=== PATIENT | male | born 1970 | race Caucasian/White ===

== ENCOUNTER 2021-08-02 09:05 | Emergency (ER) | payer OTHER ==
[2021-08-02] MEDS ORDERED: MORPHINE 2 MG/ML CARPUJECT IVP STA (09:14)
[2021-08-02] MEDS ORDERED: METOPROLOL 5 MG/5 ML VIAL IVP STA (09:14)
[2021-08-02] MEDS ORDERED: NITROGLYCERIN SL 0.4 MG TABLET SL STA (09:14)
--- NOTE | 2021-08-02 09:14 | ED Physician Documentation ---
PD HPI CHEST PAIN - Stated complaint Stated Complaint: HEART PX - History obtained from History obtained from: Patient - History of Present Illness Timing - onset: How many hours ago (1) Timing - onset during: Light activity (he was just getting into the shower and had onset of left chest to scapular area pain/tightness, like a knot. Associated with sweaty/lightheaded. This continued undulating enroute to ER. States feels similar to prior heart KS.) Timing - duration: Hours (1) Timing - details: Abrupt onset, Still present Quality: Tightness Location: Left chest Radiation: Back (left scapular area) Worsened by: Inspiration, Movement. No: Exertion, Palpation Associated symptoms: Nausea, Feeling faint / dizzy, General Weakness. No: Shortness of air, Palpitations, Cough Similar symptoms before: Diagnosis (feeling similar to [place] in the past, with subsequent CABG 1 1/2 years ago and stent 3 months later.) Recently seen: Not recently seen Review of Systems Constitutional: denies: Fever, Chills Nose: denies: Rhinorrhea / runny nose, Congestion Throat: denies: Sore throat Cardiac: reports: Chest pain / pressure. denies: Palpitations, Pedal edema, Calf pain Respiratory: denies: Dyspnea, Cough GI: reports: Nausea. denies: Abdominal Pain, Vomiting, Diarrhea Skin: denies: Rash, Lesions Neurologic: denies: Syncope, Altered mental status, Headache Endocrine: denies: Easy bruising / bleeding PD PAST MEDICAL HISTORY - Past Medical History Cardiovascular: [place] Respiratory: Other Endocrine/Autoimmune: None GI: None : Kidney stones HEENT: None Psych: None Musculoskeletal: Other Derm: None - Past Surgical History Past Surgical History: Yes Ortho: Other Cardiovascular: CABG, Coronary stent HEENT: Tonsil/Adenoidectomy - Present Medications Home Medications: Ambulatory Orders Medication Instructions Recorded Confirmed No Known Home Medications 05/15/15 05/15/15 - Allergies Allergies/Adverse Reactions: Allergies Allergy/AdvReac Type Severity Reaction Status Date / Time No Known Drug Allergies Allergy Verified 05/15/15 09:05 - Social History Does the pt smoke?: Yes Smoking Status: Current every day smoker Does the pt drink ETOH?: Yes Does the pt have substance abuse?: No - Family History Family history: reports: CAD - Immunizations Immunizations are current?: Yes - POLST Patient has POLST: No PD ED PE NORMAL - Vitals Vital signs reviewed: Yes (BP elevated. HR normal. ) - General General: Alert and oriented X 3, Well developed/nourished - HEENT HEENT: Pharynx benign - Neck Neck: Supple, no meningeal sign, No adenopathy - Cardiac Cardiac: RRR, No murmur - Respiratory Respiratory: No respiratory distress, Clear bilaterally, Other (chestwall tenderness left scapluar and lateral chest. No rash nor sores. ) - Abdomen Abdomen: Soft, Non tender - Derm Derm: Warm and dry. No: Normal color (pale ) - Extremities Extremities: No edema, No calf tenderness / cord Results - Vitals Vitals: Vital Signs - 24 hr 08/02/21 08/02/21 08/02/21 09:10 09:30 09:38 Temperature 36.5 C Heart Rate 72 62 62 Respiratory 18 14 20 Rate Blood Pressure 199/118 H 186/107 H 149/98 H O2 Saturation 100 97 94 08/02/21 08/02/21 08/02/21 09:46 10:50 11:05 Temperature Heart Rate 58 L 54 L 55 L Respiratory 15 10 L 18 Rate Blood Pressure 149/98 H 143/97 H 153/91 H O2 Saturation 96 95 96 08/02/21 08/02/21 08/02/21 11:26 12:00 12:10 Temperature 97.8 C H 36.6 C Heart Rate 58 L 58 L Respiratory 15 16 Rate Blood Pressure 153/91 H 157/95 H O2 Saturation 95 97 Oxygen O2 Source Room air - EKG (time done) 0906 Rate: Rate (enter#) (75) Rhythm: NSR [place]: Normal Intervals: Normal [place] QRS: Normal Ischemia: Normal ST segments. No: ST elevation c/w ischemia, ST depression - Labs Labs: Laboratory Tests 08/02/21 08/02/21 08/02/21 09:12 09:12 09:12 WBC 9.2 RBC 4.96 Hgb 15.5 Hct 45.9 MCV 92.5 MCH 31.3 H MCHC 33.8 RDW 11.9 L Plt Count 247 MPV 10.2 Neut # (Auto) 5.4 Lymph # (Auto) 2.5 [place] # (Auto) 0.8 Eos # (Auto) 0.3 Baso # (Auto) 0.1 Absolute Nucleated RBC 0.00 Nucleated RBC % 0.0 D-Dimer 222.7 Sodium 137 Potassium 4.0 Chloride 100 L Carbon Dioxide 27 Anion Gap 10.0 BUN 17 Creatinine 1.1 Estimated GFR (MDRD) 71 L Glucose 157 H Calcium 9.6 Total Bilirubin 0.8 AST 33 ALT 58 Alkaline Phosphatase 68 Troponin I High Sens B-Natriuretic Peptide Total Protein 8.5 H Albumin 4.9 Globulin 3.6 Albumin/Globulin Ratio 1.4 Lipase 32 08/02/21 08/02/21 08/02/21 09:12 09:12 10:59 WBC RBC Hgb Hct MCV MCH MCHC RDW Plt Count MPV Neut # (Auto) Lymph # (Auto) [place] # (Auto) Eos # (Auto) Baso # (Auto) Absolute Nucleated RBC Nucleated RBC % D-Dimer Sodium Potassium Chloride Carbon Dioxide Anion Gap BUN Creatinine Estimated GFR (MDRD) Glucose Calcium Total Bilirubin AST ALT Alkaline Phosphatase Troponin I High Sens 4.0 3.6 B-Natriuretic Peptide 24 Total Protein Albumin Globulin Albumin/Globulin Ratio Lipase - Rads (name of study) chest xray Radiology: Prelim report reviewed (no acute process), See rad report chest CT-A for aorta Radiology: Prelim report reviewed (normal aorta and no PEs. Normal lung kell[place]. ), See rad report PD MEDICAL DECISION MAKING - ED course Complexity details: reviewed results (normal labs and CXR. Still need to exclude aortic process, so got chest CT-A. Repeat Trop since onset pain not too long prior to ED arrival. No delta change in trop over 2 hours. ), re-evaluated patient (feeling much better with meds here in ER. Still some pain with breathing and movement of left shoulder. Presume musculoskeletal, given normal other testing. He is on Plavix and ASA, so will not give NSAIDs. ), considered differential (he appears in pain and is pale/sweaty. Eval for KS, PE, PTX, aortic dissection, aneurysm, other concerns.), d/w patient Departure - Departure Disposition: 01 Home, Self Care Clinical Impression: Chest pain Qualifiers: Chest pain type: other chest pain Qualified Code(s): R07.89 - Other chest pain Condition: Stable Record reviewed to determine appropriate education?: Yes Instructions: ED Strain Chest Wall Comments: As of more significant cause of your pain. With the testing today, we can exclude heart attack, aneurysms, blood clot, pneumonia, collapsed lung. Consideration would be musculoskeletal pain. Continue usual medications. Add Tylenol every 4-6 hours if needed for pains. Activity as tolerated. Recheck if not improved over the next several days and return if other symptoms develop. Discharge Date/Time: 08/02/21 12:11
[2021-08-02 09:26] LABS: BASOPHILS # (AUTO) 0.1 10^3/uL (0.0-0.1); EOSINOPHILS # (AUTO) 0.3 10^3/uL (0.0-0.7); HCT - HEMATOCRIT 45.9 % (42.0-52.0); HGB - HEMOGLOBIN 15.5 g/dL (14.0-18.0); LYMPHOCYTES # (AUTO) 2.5 10^3/uL (1.5-3.5); LYMPHOCYTES % (AUTO) 27.3 %; MEAN CORPUSCULAR HEMOGLOBIN 31.3 pg (27.0-31.0); MEAN CORPUSCULAR HGB CONC 33.8 g/dL (32.0-36.0); MEAN CORPUSCULAR VOLUME 92.5 fL (80.0-94.0); MEAN PLATELET VOLUME 10.2 fL (7.4-11.4); MONOCYTES # (AUTO) 0.8 10^3/uL (0.0-1.0); MONOCYTES % (AUTO) 9.1 %; NEUTROPHILS # (AUTO) 5.4 10^3/uL (1.5-6.6); NEUTROPHILS % (AUTO) 58.9 %; PLT - PLATELET COUNT 247 10^3/uL (130-450); RED BLOOD COUNT 4.96 10^6/uL (4.70-6.10); RED CELL DISTRIBUTION WIDTH 11.9 % (12.0-15.0); WHITE BLOOD COUNT 9.2 x10^3/uL (4.8-10.8)
[2021-08-02 09:42] LABS: ALBUMIN 4.9 g/dL (3.2-5.5); ALBUMIN/GLOBULIN RATIO 1.4 (1.0-2.2); BILIRUBIN,TOTAL 0.8 mg/dL (0.2-1.0); CALCIUM 9.6 mg/dL (8.5-10.3); CREATININE 1.1 mg/dL (0.6-1.2); TOTAL PROTEIN 8.5 g/dL (6.7-8.2)
--- NOTE | 2021-08-02 10:05 | XRAY Report ---
PROCEDURE: Chest 1 View X-Ray INDICATIONS: Chest Pain TECHNIQUE: One view of the chest was acquired. COMPARISON: None FINDINGS: Surgical changes and devices: Median sternotomy. Lungs and pleura: No pleural effusions or pneumothorax. Mild diffuse reticulonodular pulmonary opaci ty. Mediastinum: Mediastinal contours appear normal. Heart size is normal. Bones and chest wall: No suspicious bony lesions. Overlying soft tissues appear unremarkable. IMPRESSION: Mild atypical pneumonia. Reviewed by: Karla Oliveira MD on 08/02/2021 9:04 AM [facility] Approved by: Karla Oliveira MD on 08/02/2021 9:04 AM [facility] Station ID: [id number]
[2021-08-02] MEDS ORDERED: HYDROmorphone 1 MG/ML CARPUJECT IVP STA (10:11)
[2021-08-02] MEDS ORDERED: KETOROLAC 30 MG/ML VIAL IVP STA (10:11)
[2021-08-02] MEDS ORDERED: IOPAMIDOL-300 100 ML VIAL ONE (10:27)
[2021-08-02] MEDS ORDERED: IOPAMIDOL-300 100 ML VIAL IVP ONE (10:45)
--- NOTE | 2021-08-02 10:55 | CT Report ---
PROCEDURE: ANGIO CHEST W/WO INDICATIONS: left chest to back pain; cocnern for aortic proces CONTRAST: IV CONTRAST: Isovue 300 ml: 100 PO CONTRAST: *NO PO CONTRAST TECHNIQUE: After the administration of intravenous contrast, 2 mm axial images were acquired from the pulmonary apices to the posterior costophrenic angles during the arterial phase. In addition, 1 mm lung kernel and 5 mm soft tissue kernel reconstructions were performed. 3-dimensional coronal oblique maximum int ensity projection (MIP) reformats, 8 mm axial MIP, and 5 mm coronal and sagittal MPR reformats were t hen performed through the thorax. For radiation dose reduction, the following was used: automated exp osure control, adjustment of mA and/or kV according to patient size. COMPARISON: Chest x-ray dated 08/02/2021 FINDINGS: Image quality: Excellent. Pulmonary arteries: Pulmonary arteries are normal in size, and demonstrate no intraluminal filling d efects to suggest central pulmonary embolism. Lungs and pleura: 5 mm subpleural nodule within the left upper lobe anterolaterally (series 7 image 134). Lungs are otherwise clear. No pleural effusions or pneumothorax. Central and peripheral airwa ys are patent. Mediastinum: Heart size is normal, without pericardial effusion. Mild calcification of the coronary vasculature. No mediastinal or hilar adenopathy. Thoracic aorta is normal in caliber and enhancemen t. Esophagus is normal in caliber, without hiatal hernia. Bones and chest wall: No suspicious bony lesions. Ribs and thoracic spine appear intact throughout. No axillary or supraclavicular adenopathy. The thyroid is normal in size and there are no incident al findings. Abdomen: Visualized portions of the upper abdomen demonstrate small nonobstructing bilateral superio r pole renal calculi. There is reflux of contrast into the hepatic venous vasculature. IMPRESSION: 1. No pulmonary embolus. 2. Nonobstructing bilateral renal calculi. 3. Findings suggestive of right heart failure. 3. Left upper lobe pulmonary nodule. Follow-up is recommended as below. Solid nodules Solitary nodule size: <6 mm *low risk patients: no follow-up needed *high risk patients: optional CT at 12 months Solitary nodule size: 6-8 mm *low risk patients: follow-up at 6-12 months, then consider further follow-up at 18-24 months *high risk patients: initial follow-up CT at 6-12 months and then at 18-24 months if no change Solitary nodule size: >8 mm *either low or high risk patients *consider follow-up CT at 3 months, and/or CT-PET, and/or biopsy Reviewed by: Karla Oliveira MD on 08/02/2021 9:54 AM [facility] Approved by: Karla Oliveira MD on 08/02/2021 9:54 AM [facility] Station ID: [id number]
[2021-08-02 12:02] VITALS: BP 157/95
== END 2021-08-02 12:11 | disposition home or self-care (01) ==
LOC: ED 09:05
DX: R07.89 Other chest pain (principal); F17.200 Nicotine dependence, unspecified, uncomplicated
CPT/HCPCS: 36415; 71045; 71275; 80053; 83690; 83880; 84484; 85025; 85379; 93005; 96374; 96375; 99284; A9270; J1170; Q9967

== ENCOUNTER 2021-08-31 05:56 | Emergency (ER) | payer OTHER ==
[2021-08-31] MEDS ORDERED: SODIUM CHLORIDE 0.9% 1,000 ML IV STA (06:35)
[2021-08-31] MEDS ORDERED: ONDANSETRON 4 MG/2 ML VIAL IVP STA (06:35)
[2021-08-31] MEDS ORDERED: MORPHINE 2 MG/ML CARPUJECT IVP STA (06:35)
[2021-08-31] MEDS ORDERED: KETOROLAC 30 MG/ML VIAL IVP STA (06:35)
--- NOTE | 2021-08-31 06:39 | ED Physician Documentation ---
PD HPI ABD PAIN - Stated complaint Stated Complaint: ABD PX - Chief complaint Chief Complaint: Abd Pain - History obtained from History obtained from: Patient - Additional information Additional information: Patient is a 50-year-old male presenting with right lower quadrant abdominal pain. Pain ongoing x4 hours. Woke him from sleep. Pain is constant however will become sharp like "being stabbed with an ice pick". Reports history kidney stones. Additionally has history of CAD status post bypass surgery. No previous abdominal surgeries. Last p.o. intake was immediately prior to arrival. Review of Systems Ten Systems: 10 systems reviewed and negative Constitutional: denies: Fever Eyes: denies: Loss of vision Ears: denies: Loss of hearing Nose: denies: Rhinorrhea / runny nose Throat: denies: Dental pain / toothache Cardiac: denies: Chest pain / pressure Respiratory: denies: Dyspnea GI: reports: Abdominal Pain : denies: Dysuria Skin: denies: Rash PD PAST MEDICAL HISTORY - Past Medical History Cardiovascular: [place] Respiratory: Other Endocrine/Autoimmune: None GI: None : Kidney stones HEENT: None Psych: None Musculoskeletal: Other Derm: None - Past Surgical History Past Surgical History: Yes Ortho: Other Cardiovascular: CABG, Coronary stent HEENT: Tonsil/Adenoidectomy - Present Medications Home Medications: Ambulatory Orders Medication Instructions Recorded Confirmed Aspirin [[place]] 81 mg PO 08/31/21 Atorvastatin Calcium [Lipitor] 80 mg PO DAILY 08/31/21 08/31/21 Clopidogrel [Plavix] 75 mg PO DAILY 08/31/21 08/31/21 Metoprolol Tartrate [Lopressor] 25 mg PO DAILY 08/31/21 08/31/21 - Allergies Allergies/Adverse Reactions: Allergies Allergy/AdvReac Type Severity Reaction Status Date / Time No Known Drug Allergies Allergy Verified 08/31/21 06:24 - Social History Does the pt smoke?: Yes Smoking Status: Current every day smoker Does the pt drink ETOH?: Yes Does the pt have substance abuse?: No - Immunizations Immunizations are current?: Yes - POLST Patient has POLST: No PD ED PE NORMAL - Vitals Vital signs reviewed: Yes - General General: Alert and oriented X 3 - HEENT HEENT: Atraumatic - Neck Neck: Supple, no meningeal sign - Cardiac Cardiac: RRR, No gallop - Respiratory Respiratory: No respiratory distress, Clear bilaterally - Abdomen Abdomen: Normal bowel sounds, Non tender, No organomegaly - Male Male : Deferred - Rectal Rectal: Deferred - Derm Derm: Normal color - Extremities Extremities: No deformity - Neuro Neuro: Alert and oriented X 3, movement education specialist 2-12 intact, No motor deficit, No sensory deficit Results - Vitals Vitals: Vital Signs - 24 hr 08/31/21 06:21 Temperature 36.2 C L Heart Rate 73 Respiratory 18 Rate Blood Pressure 188/95 H O2 Saturation 96 Oxygen O2 Source Room air PD MEDICAL DECISION MAKING - ED course ED course: 4 hoursPatient is a 50-year-old male presenting to the emergency department with right lower abdominal pain that afebrile, hemodynamically stable on arrival to the emergency department. Was in acute distress on arrival to the emergency department. Abdominal exam was overall benign without guarding, rebound or rigidity. Ordered medication for pain control as well as comprehensive labs and imaging. I will be signing the patient out to the oncoming physician, please s ee their documentation for further detail.
[2021-08-31] MEDS ORDERED: iohexoL-300 100 ML VIAL ONE (06:47)
[2021-08-31 07:07] LABS: BASOPHILS # (AUTO) 0.1 10^3/uL (0.0-0.1); BASOPHILS % (AUTO) 0.6 %; EOSINOPHILS # (AUTO) 0.4 10^3/uL (0.0-0.7); EOSINOPHILS % (AUTO) 2.9 %; HCT - HEMATOCRIT 40.2 % (42.0-52.0); HGB - HEMOGLOBIN 13.9 g/dL (14.0-18.0); MEAN CORPUSCULAR HEMOGLOBIN 31.3 pg (27.0-31.0); MEAN CORPUSCULAR HGB CONC 34.6 g/dL (32.0-36.0); MEAN CORPUSCULAR VOLUME 90.5 fL (80.0-94.0); MEAN PLATELET VOLUME 10.1 fL (7.4-11.4); MONOCYTES # (AUTO) 1.1 10^3/uL (0.0-1.0); MONOCYTES % (AUTO) 9.2 %; NEUTROPHILS # (AUTO) 8.7 10^3/uL (1.5-6.6); NEUTROPHILS % (AUTO) 70.6 %; PLT - PLATELET COUNT 217 10^3/uL (130-450); RED BLOOD COUNT 4.44 10^6/uL (4.70-6.10); RED CELL DISTRIBUTION WIDTH 12.7 % (12.0-15.0); WHITE BLOOD COUNT 12.3 x10^3/uL (4.8-10.8)
[2021-08-31 07:17] LABS: ALBUMIN 4.4 g/dL (3.2-5.5); ALBUMIN/GLOBULIN RATIO 1.6 (1.0-2.2); BILIRUBIN,TOTAL 0.6 mg/dL (0.2-1.0); CALCIUM 9.4 mg/dL (8.5-10.3); CREATININE 1.2 mg/dL (0.6-1.2); POTASSIUM 3.9 mmol/L (3.5-5.0); TOTAL PROTEIN 7.2 g/dL (6.7-8.2)
[2021-08-31] MEDS ORDERED: iohexoL-300 100 ML VIAL IVP ONE (07:48)
[2021-08-31 08:01] LABS: BILIRUBIN,URINE NEGATIVE (NEGATIVE); GLUCOSE, URINE (UA) NEGATIVE (NEGATIVE); KETONES,URINE (UA) NEGATIVE (NEGATIVE); LEUKOCYTE ESTERASE, URINE NEGATIVE (NEGATIVE); NITRITE,URINE NEGATIVE (NEGATIVE); OCCULT BLOOD,URINE LARGE (NEGATIVE); PH,URINE 5.5 PH (5.0-7.5); PROTEIN,URINE NEGATIVE (NEGATIVE); UROBILINOGEN,URINE 0.2 (NORMAL) E.U./dL (NORMAL)
[2021-08-31 08:10] LABS: CLARITY,URINE CLEAR (CLEAR)
[2021-08-31 08:18] LABS: BACTERIA,URINE None Seen /HPF (None Seen); SQUAMOUS EPITHELIAL CELL,UR NONE SEEN (<= Few); WBC,URINE 0-3 /HPF (0-3)
[2021-08-31 09:47] VITALS: BP 149/88
--- NOTE | 2021-08-31 09:50 | CT Report ---
PROCEDURE: Abdomen/Pelvis W INDICATIONS: RLQ abd pain, h/o kidney stone CONTRAST: IV CONTRAST: Optiray 320 ml: 100 PO CONTRAST: *NO PO CONTRAST TECHNIQUE: After the administration of IV contrast, 5 mm thick sections acquired from the diaphragms to the symp hysis. 5 mm thick coronal and sagittal reformats were acquired. For radiation dose reduction, the f ollowing was used: automated exposure control, adjustment of mA and/or kV according to patient size. COMPARISON: None. FINDINGS: Image quality: Excellent. ABDOMEN: Lung bases: Lung bases are clear. Heart size is normal. Solid organs: Liver is enlarged with steatosis. The spleen is normal in size and enhancement. Gallb ladder is unremarkable Biliary system is non dilated. Pancreas enhances normally. No adrenal nodul es. Kidneys demonstrate normal size and enhancement. Left kidney demonstrates a 4 mm as well as a 3 mm calculus in the in inferior wall. 3 mm calculus is present in the superior pole. There is appearan ce of minimal to mild prominence of the left renal collecting system. The right kidney demonstrates a 3 mm superior, 3 mm mid pole calculi. There is a 8 mm proximal right ureteral calculus, [place] u nits [id number] with moderate hydronephrosis and proximal hydroureter. Minimal perinephric stranding is pres ent. Peritoneum and bowel: Bowel loops demonstrate normal wall thickness and caliber. No free fluid or a ir. Nodes and vessels: No retroperitoneal or mesenteric adenopathy by size criteria. Aorta and inferior vena cava are normal in size. Miscellaneous: No ventral hernias. PELVIS: Genitourinary: Bladder wall thickness is normal. Miscellaneous: No inguinal hernias or adenopathy. Bones: No suspicious bony lesions. No vertebral body compression fractures. IMPRESSION: 1. Obstructing proximal right ureteral calculus. 2. Nonobstructing additional right renal calculi. 3. Nonobstructing size of left renal calculi with minimal to mild appearance of hydronephrosis and hy droureter. Recently passed stone cannot be definitively excluded. 4. Marked hepatomegaly with steatosis. Reviewed by: Suly Gutierrez MD on 08/31/2021 9:49 AM PST Approved by: Suly Gutierrez MD on 08/31/2021 9:49 AM PST Station ID: [id number]
--- NOTE | 2021-08-31 09:55 | ED Physician Documentation ---
ED Addendum - Addendum Addendum: 08/31/21 09:55 Impression: 1. Obstructing proximal right ureteral calculus. Nonobstructing additional right renal calculi nonobstructing size of left renal calculi with minimal to mild appearance of hydronephrosis and nephrosis and hydroureter. Recently passed stone cannot be definitely excluded. Marked hepatomegaly with steatosis. 08/31/21 09:58 50-year-old male with nonmodifiable right-sided abdominal pain has a history of multiple kidney stones he has a kidney stone that appears lodged in the proximal ureter of a generous size of close to 8 mm. He has relief of his pain here in the emergency department but with periodic stabbing pains and he is prescribed some Percocet Zofran and tamsulosin for use at home. He does not have a urologist here he will contact his primary for referral to a urologist today.
== END 2021-08-31 10:03 | disposition home or self-care (01) ==
LOC: ED 05:56
DX: N13.2 Hydronephrosis with renal and ureteral calculous obstruction (principal); Z95.1 Presence of aortocoronary bypass graft; F17.200 Nicotine dependence, unspecified, uncomplicated
CPT/HCPCS: 36415; 74177; 80053; 81001; 83690; 85025; 96361; 96374; 96375; 99284; Q9967; 81003; 87086

== ENCOUNTER 2022-05-14 14:07 | Outpatient (CLI) | payer OTHER ==
--- NOTE | 2022-05-14 18:48 | Ultrasound Report ---
PROCEDURE: Retroperitoneal INDICATIONS: HIST OF NEPHROLITHIASIS TECHNIQUE: Real-time scanning was performed of the retroperitoneal organs, with image documentation. COMPARISON: CT abdomen/pelvis dated 08/31/2021. FINDINGS: Kidneys: Kidneys are normal in size. Right kidney measures 11.6 cm long; left kidney measures 13.3 cm long. Right renal cortical thickness is 1.8 cm; left renal cortical thickness is 1.8 cm. No vishnu d masses. There are multiple small punctate echogenic foci in the bilateral kidneys compatible with p reviously seen bilateral renal stones on CT dated 08/31/2021. There is mild bilateral hydronephrosis Bladder: Pre-void bladder volume is 310 mL. Post-void residual is 63.5 mL. Pre-void images demonst rate no intraluminal masses or stones. On pre-void images, bilateral ureteral jets are noted with co helen Doppler interrogation. (Of note, ureteral jets may not be detectable in up to 25% of cases due t o insufficient differences in specific gravity between ureteral and bladder urine). Miscellaneous: No free abdominal fluid. IMPRESSION: Bilateral nephrolithiasis with mild hydronephrosis. Unremarkable sonographic appearance of the urinar y bladder. Reviewed by: Catalino Gee MD on 05/14/2022 6:46 PM PDT Approved by: Catalino Gee MD on 05/14/2022 6:46 PM PDT Station ID: [id number]
== END 2022-05-14 14:08 | disposition home or self-care (01) ==
LOC: DI 14:07
PROVIDERS: ATTEND Urology
DX: N13.2 Hydronephrosis with renal and ureteral calculous obstruction (principal); Z87.442 Personal history of urinary calculi

== ENCOUNTER 2022-08-09 07:00 | Outpatient (CLI) | payer OTHER ==
--- NOTE | 2022-08-09 09:38 | MRI Report ---
PROCEDURE: KNEE WO - LT INDICATIONS: KNEE PAIN TECHNIQUE: Noncontrast sagittal PD fast spin echo and T2 fast spin echo with fat saturation, sagittal 3-D spoile d GE with fat saturation; coronal T1 spin echo and PD fast spin echo with fat saturation, and axial P D fast spin echo with fat saturation through the knee. COMPARISON: Left knee MRI 07/02/2013. FINDINGS: Image quality: Excellent. Anterior cruciate ligament: Intact. Posterior cruciate ligament: Intact. Medial collateral ligament: Intact. Lateral collateral ligament: Intact. Medial meniscus: There is a vertical longitudinal tear of the posterior horn of medial meniscus with a displaced meniscal flap extending anteriorly from the posterior root attachment into the intercond ylar notch and medial femorotibial compartment. Lateral meniscus: Intact. Medial and lateral tendons: The semimembranosus tendon insertions appear intact. Visualized portion s of the pes anserinus tendons appear normal. The popliteus tendon appears intact. Iliotibial band appears normal. Anterior structures: The quadriceps tendon is intact. Mild patellar tendinosis. Trace edema is seen a long the margin of the patellar tendon that may represent trace low-grade partial tearing. 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 Sca rring is seen in the infrapatellar fat pad. Bones: No acute trabecular bone injury or fracture. Medial femorotibial cartilage: There is mild partial thickness cartilage thinning in the weightbeari ng portion of the medial femorotibial compartment. Focal full-thickness cartilage loss is seen at the posterior weightbearing portion of the medial femoral condyle with subchondral osteophyte formation. Lateral femorotibial cartilage: Partial-thickness cartilage irregular is seen in the far posterior p ortion of the lateral femoral condyle. Patellofemoral cartilage: Mild surface cartilage irregularity is seen at the lateral patellar facet Soft tissues: There is a small joint effusion. There is a trace medial popliteal cyst. The musculat ure surrounding the knee is normal in bulk. Metal artifact is seen in the posterior medial subcutaneo us tissues. IMPRESSION: 1.Displaced vertical longitudinal tear of the posterior horn of the medial meniscus with displaced me niscal flap extending anteriorly from the posterior root attachment into the intercondylar notch and medial femorotibial compartment. 2.Focal full-thickness cartilage loss in the posterior weightbearing portion of the medial femorotibi al compartment with subchondral osteophyte formation. 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 3.Mild patellar tendinosis. Mild edema in the infrapatellar fat pad just deep to the patellar tendon may be secondary to tendinosis, postsurgical changes, or possibly a small low-grade partial tear. No definite disruption of the patellar tendon fibers is seen. 4.Cruciate and collateral ligaments are intact. No acute trabecular bone injury. 5.Small joint effusion. Reviewed by: Roberto Carlos Gale MD on 08/09/2022 9:36 AM PST Approved by: Roberto Carlos Gale MD on 08/09/2022 9:36 AM PST Station ID: [id number]
== END 2022-08-09 07:01 | disposition home or self-care (01) ==
LOC: DI 07:00
DX: S83.242A Other tear of medial meniscus, current injury, left knee, initial encounter (principal); M94.262 Chondromalacia, left knee; M25.462 Effusion, left knee; M67.962 Unspecified disorder of synovium and tendon, left lower leg

== ENCOUNTER 2023-01-13 07:09 | Outpatient (CLI) | payer OTHER ==
--- NOTE | 2023-01-13 10:51 | MRI Report ---
PROCEDURE: KNEE WO - RT INDICATIONS: RIGHT KNEE PAIN TECHNIQUE: Noncontrast sagittal PD fast spin echo and T2 fast spin echo with fat saturation, sagittal 3-D spoile d GE with fat saturation; coronal T1 spin echo and PD fast spin echo with fat saturation, and axial P D fast spin echo with fat saturation through the knee. COMPARISON: None. FINDINGS: Image quality: Excellent. Anterior cruciate ligament: Intact. Posterior cruciate ligament: Intact. Medial collateral ligament: Intact. Lateral collateral ligament: Intact. Medial meniscus: There is complex tearing of the medial meniscus. A horizontal oblique component is seen at the posterior horn and body extending to the inner third of the tibial articular surface. The re is also a vertical longitudinal component with a mildly centrally displaced meniscal flap. Osseous edema is noted in the adjacent portion of the medial tibial plateau. Lateral meniscus: Intact. Medial and lateral tendons: The semimembranosus tendon insertions appear intact. Visualized portion s of the pes anserinus tendons appear normal. The popliteus tendon appears intact. Iliotibial band appears normal. Anterior structures: The patellar tendon and the distal quadriceps tendon appear intact. No patellar subluxation. No femoral trochlear dysplasia or ventral trochlear prominence. No edema in the infra patellar fat pad. Bones: Mild osseous edema is seen at the medial aspect of the medial tibial plateau, which may be re active to the adjacent meniscal tear versus secondary to an osseous contusion or related to overlying cartilage loss. Medial femorotibial cartilage: Moderate partial-thickness cartilage thinning and mild surface irregu larity is seen throughout the weightbearing portion of the medial femorotibial compartment. Lateral femorotibial cartilage: Mild surface irregularity is seen in the articular cartilage at the central to posterior weightbearing portion of the lateral tibial plateau. Patellofemoral cartilage: Mild partial thickness cartilage irregularity at the lateral patellar face t and there is deep cartilage fissuring in the medial patellar facet. Soft tissues: There is a small joint effusion. There is a trace medial popliteal cyst. Small amount of fluid is seen tracking along the popliteus tendon sheath. The musculature surrounding the knee is normal in bulk. IMPRESSION: 1.Complex tearing of the medial meniscus with horizontal oblique component at the posterior horn and body extending to the tibial articular surface as well as a vertical longitudinal component predomina ntly involving the posterior horn with a mildly centrally displaced meniscal flap. 2.Mild osseous edema within the medial tibial plateau may be reactive to the adjacent meniscal tear v ersus secondary to an osseous contusion or overlying cartilage loss. 3.Grade II to III cartilage thinning in the weightbearing portion of the medial femorotibial compartm ent. There is mild grade II chondromalacia in the lateral and anterior compartments. 4.Cruciate and collateral ligaments are intact. Lateral meniscus is intact. 5.Small joint effusion. Reviewed by: Roberto Carlos Gale MD on 01/13/2023 10:50 AM PDT Approved by: Roberto Carlos Gale MD on 01/13/2023 10:50 AM PDT Station ID: [id number]
== END 2023-01-13 07:10 | disposition home or self-care (01) ==
LOC: DI 07:09
DX: S83.231A Complex tear of medial meniscus, current injury, right knee, initial encounter (principal); M94.261 Chondromalacia, right knee; M25.461 Effusion, right knee

== ENCOUNTER 2023-03-24 21:23 | Outpatient (CLI) | payer OTHER | END 2023-03-24 21:24 | disposition short-term general hospital (02) | LOC: EMS 21:23 | DX: R07.9 Chest pain, unspecified (principal); M79.602 Pain in left arm; R20.2 Paresthesia of skin; R06.02 Shortness of breath; R61 Generalized hyperhidrosis | CPT/HCPCS: A0425; A0427 ==

== ENCOUNTER 2023-12-29 12:06 | Emergency (ER) | payer OTHER ==
--- NOTE | 2023-12-29 12:30 | ED Physician Documentation ---
PD HPI ABD PAIN - Stated complaint Stated Complaint: RT ABD PX,LT LOW BACK PX - Chief complaint Chief Complaint: Abd Pain - History obtained from History obtained from: Patient - History of Present Illness Timing - onset: Today, Yesterday (had some moderate pain right lower yesterday that has decreased. Abrupt severe pain left flank this morning associated with nausea. Feeling similar to prior kidney stones, per pt.) Timing - details: Abrupt onset, Still present Pain level max: 9 Pain level now: 9 Quality: Cramping, Aching, Pain Location: LUQ Radiation: Left flank Worsened by: No: Moving, Breathing Associated symptoms: Nausea, Vomiting. No: Fever, Diarrhea, Constipation, Dysuria Similar symptoms before: Diagnosis (feeling familiar with prior kidney stones, but has been few years since last one. Has had to have stone removal 2-3 times in the past.) Review of Systems Constitutional: denies: Fever, Chills Throat: denies: Sore throat Respiratory: denies: Cough GI: reports: Abdominal Pain, Nausea. denies: Vomiting : reports: Dysuria PD PAST MEDICAL HISTORY - Past Medical History Past Medical History: Yes Cardiovascular: [place] Respiratory: Other Endocrine/Autoimmune: None GI: None : Kidney stones HEENT: None Psych: None Musculoskeletal: Other Derm: None - Past Surgical History Past Surgical History: Yes Ortho: Other Cardiovascular: CABG, Coronary stent HEENT: Tonsil/Adenoidectomy - Present Medications Home Medications: Ambulatory Orders Medication Instructions Recorded Confirmed Aspirin [Vazalore] 81 mg PO 08/31/21 Atorvastatin Calcium [Lipitor] 80 mg PO DAILY 08/31/21 08/31/21 Metoprolol Tartrate [Lopressor] 25 mg PO DAILY 08/31/21 08/31/21 Meloxicam [Mobic] 7.5 mg PO BID 10 Days #20 tablet 12/29/23 Ondansetron Odt [Zofran] 4 mg TL Q6H PRN #10 tablet 12/29/23 Tamsulosin [Flomax] 0.4 mg PO DAILY #5 cap 12/29/23 oxyCODONE [Roxicodone] 5 mg PO Q4H PRN #20 tablet 12/29/23 - Allergies Allergies/Adverse Reactions: Allergies Allergy/AdvReac Type Severity Reaction Status Date / Time No Known Drug Allergies Allergy Verified 05/09/24 12:10 - Social History Does the pt smoke?: No Smoking Status: Never smoker Does the pt drink ETOH?: Yes Does the pt have substance abuse?: No - Immunizations Immunizations are current?: Yes - POLST Patient has POLST: No PD ED PE NORMAL - Vitals Vital signs reviewed: Yes - General General: Alert and oriented X 3, Well developed/nourished, Other (appears in considerable paiin) - Cardiac Cardiac: RRR, No murmur - Respiratory Respiratory: Clear bilaterally - Abdomen Abdomen: Normal bowel sounds, Soft, Non distended, No organomegaly, Other (some tender left abd without percussion/rbound tenderness. ) Results - Vitals Vitals: Vital Signs - 24 hr 12/29/23 12/29/23 12:10 14:24 Temperature 36.8 C Heart Rate 74 64 Respiratory 16 18 Rate Blood Pressure 180/100 H 168/78 H O2 Saturation 99 95 Oxygen O2 Source Room air - Labs Labs: Laboratory Tests 12/29/23 12/29/23 12/29/23 12:22 12:22 12:31 WBC 9.6 RBC 4.60 L Hgb 14.3 Hct 41.0 L MCV 89.1 MCH 31.1 H MCHC 34.9 RDW 12.2 Plt Count 233 MPV 10.4 Neut # (Auto) 6.7 H Lymph # (Auto) 1.8 [place] # (Auto) 0.8 Eos # (Auto) 0.2 Baso # (Auto) 0.1 Absolute Nucleated RBC 0.00 Nucleated RBC % 0.0 Sodium 135 Potassium 3.9 Chloride 102 Carbon Dioxide 25 Anion Gap 8.0 BUN 18 Creatinine 1.1 Estimated GFR (MDRD) 70 L Glucose 325 H Calcium 9.9 Total Bilirubin 1.0 AST 32 ALT 58 Alkaline Phosphatase 79 Total Protein 7.4 Albumin 4.6 Globulin 2.8 Albumin/Globulin Ratio 1.6 Lipase 30 Urine Color YELLOW Urine Clarity HAZY Urine pH 6.0 Ur Specific [place] 1.015 Urine Protein NEGATIVE Urine Glucose (UA) >=1000 H Urine Ketones NEGATIVE Urine Occult Blood LARGE H Urine Nitrite NEGATIVE Urine Bilirubin NEGATIVE Urine Urobilinogen 0.2 (NORMAL) Ur Leukocyte Esterase NEGATIVE Urine RBC TNTC H Urine WBC 0-3 Ur Squamous Epith Cells RARE Squamous Urine Bacteria Rare Ur Microscopic Review INDICATED Urine Culture Comments NOT INDICATED - Rads (name of study) KUB CT Relevant Findings:: Prelim report reviewed, EMP independent interpretation of test (7-8 mm stone proximal left ureter with some hydronephrosis. No stones evident on right. ) PD Medical Decision Making - ED course Complexity details: reviewed results (left hydroureter with ureteral stone ), re-evaluated patient (pain reasonably lowered with IV meds. He feels able for dicharge. No nuasea/Vomiting at this time. ), considered differential (symptoms c/w his prior stones. However has needed surgical intervention for some prior stones and he states has not had imaging few years. Shared decision for geting CT to evaluate.), d/w patient Departure - Departure Disposition: Home, Self Care Clinical Impression: Acute abdominal pain in left flank, Ureterolithiasis Condition: Stable Record reviewed to determine appropriate education?: Yes Instructions: ED Stone Renal W Colic Follow-Up: Miguel Rubi MD [Provider Admit Priv/Credential] - Prescriptions: Tamsulosin [Flomax] 0.4 mg PO DAILY #5 cap Meloxicam [Mobic] 7.5 mg PO BID 10 Days #20 tablet oxyCODONE [Roxicodone] 5 mg PO Q4H PRN #20 tablet PRN Reason: Pain Ondansetron Odt [Zofran] 4 mg TL Q6H PRN #10 tablet PRN Reason: Nausea / Vomiting Comments: You have a 7-1/2 to 8 mm stone in the proximal left ureter causing some moderate swelling in the left kidney. I looked carefully and did not see any stones or other abnormalities on the right side. It is possible you may have passed a small 1 and still has some residual inflammation. Main issue of course is acute pain on the left. We can use a combination of some anti-inflammatories along with regular dosing of Tylenol. I would suggest 500 to 650 mg every 4 times a day for the next several days to week. To that add oxycodone every 3-4 hours if needed for kidney stone pain. Ondansetron if needed for nausea. The urologist commonly will use tamsulosin (which is a prostate medicine) which in this setting is used to reduce ureteral spasm and promote better passage of the stone. You can follow-up with urology here in [place] with [facility]. I provided the referral phone number. Call their office today or tomorrow for follow-up appointment. It would probably be better to have an appointment lined up given the size of the stone getting into the range where can have difficulty passing. I sent new prescriptions to your preferred pharmacy, [facility] in [place]. Stay well-hydrated. Regular medicines otherwise. Return to the ER if uncontrolled pain or other concerns. I am prescribing a short course of narcotic pain medication for you. These are potentially dangerous and addictive medications that should be used carefully. These medications may constipate you. Take an [id number] stool softener such as docusate twice daily with plenty of water while taking these medications. If you go 24 hours without a bowel movement, take [id number] MiraLAX, per package instructions. Do not drink or drive while taking these medications. If you received narcotic or sedating medications while in the emergency department do not drive for 24 hours. Store this medication in a safe, secure place and out of reach of children. It is a violation of federal law to give or sell this medication to another person or to use in a manner other than prescribed. The ED will not refill narcotic prescriptions, including prescriptions lost or stolen. You can dispose of unwanted medications at the [facility]'s office or at several pharmacies such as [facility]. Forms: PCP List Discharge Date/Time: 12/29/23 14:46
[2023-12-29 12:33] LABS: BASOPHILS # (AUTO) 0.1 10^3/uL (0.0-0.1); BASOPHILS % (AUTO) 0.5 %; EOSINOPHILS # (AUTO) 0.2 10^3/uL (0.0-0.7); EOSINOPHILS % (AUTO) 1.9 %; HGB - HEMOGLOBIN 14.3 g/dL (14.0-18.0); LYMPHOCYTES # (AUTO) 1.8 10^3/uL (1.5-3.5); LYMPHOCYTES % (AUTO) 18.6 %; MEAN CORPUSCULAR HEMOGLOBIN 31.1 pg (27.0-31.0); MEAN CORPUSCULAR HGB CONC 34.9 g/dL (32.0-36.0); MEAN CORPUSCULAR VOLUME 89.1 fL (80.0-94.0); MEAN PLATELET VOLUME 10.4 fL (7.4-11.4); MONOCYTES # (AUTO) 0.8 10^3/uL (0.0-1.0); MONOCYTES % (AUTO) 8.5 %; NEUTROPHILS # (AUTO) 6.7 10^3/uL (1.5-6.6); NEUTROPHILS % (AUTO) 69.7 %; PLT - PLATELET COUNT 233 10^3/uL (130-450); RED CELL DISTRIBUTION WIDTH 12.2 % (12.0-15.0); WHITE BLOOD COUNT 9.6 x10^3/uL (4.8-10.8)
[2023-12-29 12:36] LABS: BILIRUBIN,URINE NEGATIVE (NEGATIVE); GLUCOSE, URINE (UA) >=1000 mg/dL (NEGATIVE); KETONES,URINE (UA) NEGATIVE (NEGATIVE); LEUKOCYTE ESTERASE, URINE NEGATIVE (NEGATIVE); NITRITE,URINE NEGATIVE (NEGATIVE); OCCULT BLOOD,URINE LARGE (NEGATIVE); PROTEIN,URINE NEGATIVE (NEGATIVE); UROBILINOGEN,URINE 0.2 (NORMAL) E.U./dL (NORMAL)
[2023-12-29 12:39] LABS: CLARITY,URINE HAZY (CLEAR)
[2023-12-29 12:47] LABS: ALBUMIN 4.6 g/dL (3.2-5.5); ALBUMIN/GLOBULIN RATIO 1.6 (1.0-2.2); CALCIUM 9.9 mg/dL (8.5-10.3); CREATININE 1.1 mg/dL (0.6-1.3); POTASSIUM 3.9 mmol/L (3.5-4.5); TOTAL PROTEIN 7.4 g/dL (6.4-8.9)
[2023-12-29] MEDS: KETOROLAC 15 MG/ML VIAL IVP STA (12:49)
[2023-12-29] MEDS: HYDROmorphone 1 MG/ML CARPUJECT IVP STA ×2 (12:50→14:04)
[2023-12-29] MEDS: SODIUM CHLORIDE 0.9% 1,000 ML IV STA (12:50)
[2023-12-29] MEDS: ONDANSETRON 4 MG/2 ML VIAL IVP STA (12:50)
[2023-12-29 12:52] LABS: BACTERIA,URINE Rare /HPF (None Seen); RBC,URINE TNTC /HPF (0-5); SQUAMOUS EPITHELIAL CELL,UR RARE Squamous (<= Few); WBC,URINE 0-3 /HPF (0-3)
[2023-12-29] MEDS: LIDOCAINE-MPF 2% 10 ML in SODIUM CHLORIDE 0.9% 50 ML IV STA (13:19)
[2023-12-29] MEDS: TAMSULOSIN 0.4 MG CAPSULE PO STA (14:04)
--- NOTE | 2023-12-29 14:09 | CT Report ---
PROCEDURE: Abdomen/Pelvis WO INDICATIONS: left flank pain c/w stone TECHNIQUE: A CT scan of the abdomen and pelvis was performed without the use of intravenous contrast. Images we re recorded and evaluated at appropriate window settings. Reformats: coronal and sagittal. For radiat ion dose reduction, the following was used: automated exposure control, adjustment of mA and/or kV ac cording to patient size. COMPARISON: CT abdomen pelvis 08/31/2021 FINDINGS: Image quality: Diagnostic. Lower chest: Unremarkable. Liver: No contour-deforming mass. There is enlarged measuring 23.6 cm with steatosis. Gallbladder and biliary tree: Contracted but grossly unremarkable. Spleen: No splenomegaly. Pancreas: No pancreatic ductal dilation. Adrenals: No adrenal nodule. Kidneys and ureters: Image 7 mm proximal left ureteral calculus Hounsfield units 1362. Moderate hydro nephrosis and proximal hydroureter. 4 mm calcification is present in the superior left renal pole as well as 4 mm calcification in the inferior pole. Right kidney demonstrates 2 punctate calcifications without obstruction. No renal cystic lesion which requires follow up. No solid mass. Stomach, bowel and peritoneum: No bowel distension. No pathologic free fluid. Lymph nodes: No central or retroperitoneal adenopathy. Vessels: No infrarenal aortic aneurysm. PELVIS Reproductive organs: Unremarkable. Bladder: No wall thickness, accounting for underdistention. Pelvic lymph nodes: No pelvic adenopathy by size criteria. Bones: No aggressive osseous abnormality. Other: No significant ventral or inguinal hernia. IMPRESSION: Moderate left hydronephrosis and hydroureter secondary to 7 mm proximal left ureteral calculus. Hepatomegaly with steatosis. Reviewed by: Suly Gutierrez MD on 12/29/2023 2:08 PM PDT Approved by: Suly Gutierrez MD on 12/29/2023 2:08 PM PDT Station ID: [id number]
[2023-12-29 14:35] VITALS: BP 168/78; O2SAT 95
== END 2023-12-29 14:46 | disposition home or self-care (01) ==
LOC: ED 12:06
DX: N13.2 Hydronephrosis with renal and ureteral calculous obstruction (principal)
CPT/HCPCS: 36415; 74176; 80053; 81001; 83690; 85025; 96374; 96375; 96376; 99284; A9270; J1170; J7040; 81003; 87086

== ENCOUNTER 2024-03-29 21:22 | Inpatient (IN) | payer OTHER ==
--- NOTE | 2024-03-29 21:44 | ED Physician Documentation ---
History of Present Illness - Stated complaint Stated Complaint: HIGH BLOOD SUGAR - Chief complaint Chief Complaint: General - History obtained from History obtained from: Patient - Additonal information Additional information: 53-year-old man with diet-controlled type 2 diabetes presents with polydipsia, increased urinary output, fatigue, and dizziness for the past couple of weeks. Denies fever or chills headache URI symptoms, chest pain shortness of breath abdominal pain nausea vomiting diarrhea. PD PAST MEDICAL HISTORY - Past Medical History Cardiovascular: [place] Respiratory: Other Endocrine/Autoimmune: None GI: None : Kidney stones HEENT: None Psych: None Musculoskeletal: Other Derm: None - Past Surgical History Past Surgical History: Yes Ortho: Other Cardiovascular: CABG, Coronary stent HEENT: Tonsil/Adenoidectomy - Present Medications Home Medications: Ambulatory Orders Medication Instructions Recorded Confirmed Aspirin [Vazalore] 162 mg PO DAILY 08/31/21 03/30/24 Metoprolol Tartrate [Lopressor] 37.5 mg PO DAILY 08/31/21 03/30/24 Losartan Potassium 25 mg PO DAILY 03/29/24 03/30/24 Atorvastatin [Lipitor] 80 mg PO QPM 03/30/24 03/30/24 - Allergies Allergies/Adverse Reactions: Allergies Allergy/AdvReac Type Severity Reaction Status Date / Time No Known Drug Allergies Allergy Verified 03/29/24 21:33 - Social History Does the pt smoke?: No Smoking Status: Never smoker Does the pt drink ETOH?: Yes Does the pt have substance abuse?: No - Immunizations Immunizations are current?: Yes - POLST Patient has POLST: No PD ED PE NORMAL - Vitals Vital signs reviewed: Yes - General General: Alert and oriented X 3, No acute distress, Well developed/nourished - HEENT HEENT: Atraumatic, PERRL, EOMI - Neck Neck: Supple, no meningeal sign - Cardiac Cardiac: RRR - Respiratory Respiratory: No respiratory distress, Clear bilaterally - Abdomen Abdomen: Non tender, Non distended - Derm Derm: Normal color, Warm and dry - Extremities Extremities: No deformity - Neuro Neuro: Alert and oriented X 3, No motor deficit, No sensory deficit - Psych Psych: Normal mood, Normal affect Results - Vitals Vitals: Vital Signs - 24 hr 03/29/24 03/29/24 03/29/24 21:25 22:30 23:42 Temperature 36.2 C L Heart Rate 91 75 75 Respiratory 15 17 Rate Blood Pressure 167/97 H 203/113 H 173/93 H O2 Saturation 97 96 99 03/30/24 03/30/24 03/30/24 01:00 01:27 03:00 Temperature Heart Rate 71 69 79 Respiratory 19 17 17 Rate Blood Pressure 163/76 H 147/68 H 160/98 H O2 Saturation 97 98 100 03/30/24 03/30/24 05:00 07:17 Temperature 36.3 C L Heart Rate 73 75 Respiratory 15 21 Rate Blood Pressure 154/93 H 133/82 H O2 Saturation 97 95 Oxygen O2 Source Room air - EKG (time done) 2139 EKG releavant findings:: EKG personally interpreted by author of this note. Relevant findings are: Rate: Rate (enter#) (82) Rhythm: NSR [place]: Normal Intervals: Normal RI QRS: Normal Ischemia: Normal ST segments - Labs Labs: Laboratory Tests 03/29/24 03/29/24 03/29/24 21:42 21:56 21:56 WBC 9.2 RBC 4.51 L Hgb 14.3 Hct 41.5 L MCV 92.0 MCH 31.7 H MCHC 34.5 RDW 12.4 Plt Count 208 MPV 11.0 Neut # (Auto) 5.8 Lymph # (Auto) 2.5 [place] # (Auto) 0.5 Eos # (Auto) 0.2 Baso # (Auto) 0.1 Absolute Nucleated RBC 0.02 Nucleated RBC % 0.2 VBG pH VBG pCO2 VBG pO2 VBG HCO3 VBG Total CO2 VBG O2 Saturation VBG Base Excess Sodium 118 L* Potassium 3.7 Chloride 87 L Carbon Dioxide 15 L Anion Gap 16.0 H BUN 15 Creatinine 1.4 H Estimated GFR (MDRD) 53 L Glucose 239 H Calcium 9.1 Total Bilirubin 0.5 AST 45 H ALT 65 H Alkaline Phosphatase 73 Total Protein 7.0 Albumin 4.5 Globulin 2.5 Albumin/Globulin Ratio 1.8 Lipase 310 H Urine Color YELLOW Urine Clarity CLEAR Urine pH 6.0 Ur Specific [place] >=1.030 H Urine Protein 30 H Urine Glucose (UA) 500 H Urine Ketones >=80 H Urine Occult Blood SMALL H Urine Nitrite NEGATIVE Urine Bilirubin NEGATIVE Urine Urobilinogen 0.2 (NORMAL) Ur Leukocyte Esterase NEGATIVE Urine RBC 0-5 Urine WBC 0-3 Ur Squamous Epith Cells NONE SEEN Urine Bacteria None Seen Ur Microscopic Review INDICATED Urine Culture Comments NOT INDICATED Serum Ketones 03/29/24 03/29/24 03/30/24 22:50 23:06 02:30 WBC RBC Hgb Hct MCV MCH MCHC RDW Plt Count MPV Neut # (Auto) Lymph # (Auto) [place] # (Auto) Eos # (Auto) Baso # (Auto) Absolute Nucleated RBC Nucleated RBC % VBG pH 7.267 L VBG pCO2 42.0 VBG pO2 24.5 L VBG HCO3 18.7 L VBG Total CO2 20.0 L VBG O2 Saturation 49.2 L VBG Base Excess -7.9 L Sodium 123 L Potassium 4.1 Chloride 95 L Carbon Dioxide 15 L Anion Gap 13.0 BUN 15 Creatinine 1.0 Estimated GFR (MDRD) 78 L Glucose 174 H Calcium 8.5 Total Bilirubin 0.9 AST 30 ALT 45 Alkaline Phosphatase 61 Total Protein 5.7 L Albumin 4.1 Globulin 1.6 L Albumin/Globulin Ratio 2.6 H Lipase Urine Color Urine Clarity Urine pH Ur Specific [place] Urine Protein Urine Glucose (UA) Urine Ketones Urine Occult Blood Urine Nitrite Urine Bilirubin Urine Urobilinogen Ur Leukocyte Esterase Urine RBC Urine WBC Ur Squamous Epith Cells Urine Bacteria Ur Microscopic Review Urine Culture Comments Serum Ketones SMALL H 03/30/24 03/30/24 05:35 05:35 WBC 8.8 RBC 4.34 L Hgb 14.1 Hct 40.0 L MCV 92.2 MCH 32.5 H MCHC 35.3 RDW 12.4 Plt Count 187 MPV 10.4 Neut # (Auto) 5.0 Lymph # (Auto) 2.7 [place] # (Auto) 0.7 Eos # (Auto) 0.3 Baso # (Auto) 0.1 Absolute Nucleated RBC 0.00 Nucleated RBC % 0.0 VBG pH VBG pCO2 VBG pO2 VBG HCO3 VBG Total CO2 VBG O2 Saturation VBG Base Excess Sodium 123 L Potassium 4.1 Chloride 94 L Carbon Dioxide 15 L Anion Gap 14.0 H BUN 12 Creatinine 1.1 Estimated GFR (MDRD) 70 L Glucose 226 H Calcium 8.4 L Total Bilirubin AST ALT Alkaline Phosphatase Total Protein Albumin Globulin Albumin/Globulin Ratio Lipase Urine Color Urine Clarity Urine pH Ur Specific [place] Urine Protein Urine Glucose (UA) Urine Ketones Urine Occult Blood Urine Nitrite Urine Bilirubin Urine Urobilinogen Ur Leukocyte Esterase Urine RBC Urine WBC Ur Squamous Epith Cells Urine Bacteria Ur Microscopic Review Urine Culture Comments Serum Ketones PD Medical Decision Making - ED course ED course: 53-year-old man presented with polydipsia, polyuria, found to be in mild DKA with anion gap 16, small serum ketones, glucose 239, also with some hyponatremia with sodium of 118 which is still very low even when corrected for glucose. This is likely secondary to polydipsia. Patient was provided with IV fluids overnight with some mild improvement in sodium. His anion gap is improved and glucose has improved with 2 doses of IV insulin. Plan to endorsed oncoming daytime EDMD Dr. Kang at 7 AM shift change for admission pending bed availability. Departure - Departure Clinical Impression: Hyponatremia, Hyperglycemia, Ketonemia Forms: PCP List
[2024-03-29 22:51] LABS: ALBUMIN 4.5 g/dL (3.2-5.5); ALBUMIN/GLOBULIN RATIO 1.8 (1.0-2.2); BASOPHILS # (AUTO) 0.1 10^3/uL (0.0-0.1); BASOPHILS % (AUTO) 0.8 %; BILIRUBIN,TOTAL 0.5 mg/dL (0.2-1.0); CALCIUM 9.1 mg/dL (8.5-10.3); CREATININE 1.4 mg/dL (0.6-1.3); EOSINOPHILS # (AUTO) 0.2 10^3/uL (0.0-0.7); EOSINOPHILS % (AUTO) 1.7 %; HCT - HEMATOCRIT 41.5 % (42.0-52.0); HGB - HEMOGLOBIN 14.3 g/dL (14.0-18.0); LYMPHOCYTES # (AUTO) 2.5 10^3/uL (1.5-3.5); LYMPHOCYTES % (AUTO) 27.2 %; MEAN CORPUSCULAR HEMOGLOBIN 31.7 pg (27.0-31.0); MEAN CORPUSCULAR HGB CONC 34.5 g/dL (32.0-36.0); MONOCYTES # (AUTO) 0.5 10^3/uL (0.0-1.0); MONOCYTES % (AUTO) 5.4 %; NEUTROPHILS # (AUTO) 5.8 10^3/uL (1.5-6.6); NEUTROPHILS % (AUTO) 63.4 %; NRBC ABSOLUTE COUNT (AUTO) 0.02 x10^3/uL; NUCLEATED RED BLOOD CELLS AUTO 0.2 /100WBC; PLT - PLATELET COUNT 208 10^3/uL (130-450); POTASSIUM 3.7 mmol/L (3.5-4.5); RED BLOOD COUNT 4.51 10^6/uL (4.70-6.10); RED CELL DISTRIBUTION WIDTH 12.4 % (12.0-15.0); WHITE BLOOD COUNT 9.2 x10^3/uL (4.8-10.8)
[2024-03-29] MEDS: INSULIN REGULAR, HUMAN 300 UNIT/3 ML PEN IVP STA (23:07)
[2024-03-29] MEDS: POTASSIUM CHLORIDE 20 MEQ/15 ML UDC PO STA (23:08)
[2024-03-29 23:16] LABS: VBG BASE EXCESS -7.9 mmol/L (-2 - +2); VBG HCO3 18.7 mmol/L (23-28); VBG OXYGEN SATURATION 49.2 % (60-80); VBG PH 7.267 (7.31-7.41); VBG PO2 24.5 mmHg (25-47)
[2024-03-29 23:26] LABS: BILIRUBIN,URINE NEGATIVE (NEGATIVE); GLUCOSE, URINE (UA) 500 mg/dL (NEGATIVE); KETONES,URINE (UA) >=80 mg/dL (NEGATIVE); LEUKOCYTE ESTERASE, URINE NEGATIVE (NEGATIVE); NITRITE,URINE NEGATIVE (NEGATIVE); OCCULT BLOOD,URINE SMALL (NEGATIVE); PROTEIN,URINE 30 mg/dL (NEGATIVE); UROBILINOGEN,URINE 0.2 (NORMAL) E.U./dL (NORMAL)
[2024-03-29 23:27] LABS: CLARITY,URINE CLEAR (CLEAR)
[2024-03-29 23:38] LABS: RBC,URINE 0-5 /HPF (0-5); SQUAMOUS EPITHELIAL CELL,UR NONE SEEN (<= Few); WBC,URINE 0-3 /HPF (0-3)
[2024-03-29 23:39] LABS: BACTERIA,URINE None Seen /HPF (None Seen)
[2024-03-29] MEDS: SODIUM CHLORIDE 0.9% 500 ML IV STA (23:53)
[2024-03-30] MEDS: NS W/20 MEQ KCL 1,000 ML IV SCH (00:56)
[2024-03-30] MEDS: INSULIN REGULAR, HUMAN 300 UNIT/3 ML PEN IVP STA ×5 (01:17→17:01)
[2024-03-30] MEDS: LACTATED RINGERS 1,000 ML IV STA (01:17)
[2024-03-30] MEDS: POTASSIUM CHLORIDE 20 MEQ/15 ML UDC PO STA (01:19)
[2024-03-30 03:26] LABS: ALBUMIN 4.1 g/dL (3.2-5.5); ALBUMIN/GLOBULIN RATIO 2.6 (1.0-2.2); BILIRUBIN,TOTAL 0.9 mg/dL (0.2-1.0); CALCIUM 8.5 mg/dL (8.5-10.3); POTASSIUM 4.1 mmol/L (3.5-4.5); TOTAL PROTEIN 5.7 g/dL (6.4-8.9)
[2024-03-30] MEDS ORDERED: ONDANSETRON 4 MG/2 ML VIAL IVP PRN ×2 (03:34→20:55)
[2024-03-30] MEDS: SODIUM CHLORIDE 0.9% 1,000 ML IV SCH (04:27)
[2024-03-30] MEDS: ASPIRIN 325 MG TABLET PO STA (04:29)
[2024-03-30 05:56] LABS: BASOPHILS # (AUTO) 0.1 10^3/uL (0.0-0.1); BASOPHILS % (AUTO) 0.7 %; EOSINOPHILS # (AUTO) 0.3 10^3/uL (0.0-0.7); HGB - HEMOGLOBIN 14.1 g/dL (14.0-18.0); LYMPHOCYTES # (AUTO) 2.7 10^3/uL (1.5-3.5); LYMPHOCYTES % (AUTO) 30.2 %; MEAN CORPUSCULAR HEMOGLOBIN 32.5 pg (27.0-31.0); MEAN CORPUSCULAR HGB CONC 35.3 g/dL (32.0-36.0); MEAN CORPUSCULAR VOLUME 92.2 fL (80.0-94.0); MEAN PLATELET VOLUME 10.4 fL (7.4-11.4); MONOCYTES # (AUTO) 0.7 10^3/uL (0.0-1.0); MONOCYTES % (AUTO) 7.7 %; NEUTROPHILS % (AUTO) 56.6 %; PLT - PLATELET COUNT 187 10^3/uL (130-450); RED BLOOD COUNT 4.34 10^6/uL (4.70-6.10); RED CELL DISTRIBUTION WIDTH 12.4 % (12.0-15.0); WHITE BLOOD COUNT 8.8 x10^3/uL (4.8-10.8)
[2024-03-30 06:11] LABS: CALCIUM 8.4 mg/dL (8.5-10.3); CREATININE 1.1 mg/dL (0.6-1.3); POTASSIUM 4.1 mmol/L (3.5-4.5)
[2024-03-30] MEDS ORDERED: ATORVASTATIN 40 MG TABLET PO SCH (07:00)
--- NOTE | 2024-03-30 07:58 | ED Physician Documentation ---
ED Addendum - Addendum Addendum: 03/30/24 07:57 Seen patient on change of shift. He is resting comfortably and sleeping so I did not arouse him at this time. Nursing had him awake shortly ago and he did not have specific complaints. Blood tests at 530 this morning still showed a sodium of 123 similar to the prior a few hours earlier but up from 118 last evening. Blood sugars are in the 200s. He had received bolus dosing of insulin and is not on a drip. He is on a low volume saline with potassium drip. We can recheck his pH with a VBG and also recheck for ketones which were last checked around midnight. Awaiting bed opening on the floor as he will still need admission to the hospital for gradual improvement in his sodium and clearing of his ketosis.
[2024-03-30 08:09] LABS: KETONES, SERUM (ACETEST) SMALL (NEGATIVE)
[2024-03-30 08:23] LABS: CALCIUM 8.4 mg/dL (8.5-10.3); CARBON DIOXIDE - CO2 15 mmol/L (21-32); CHLORIDE 94 mmol/L (101-111); GFR - MDRD 78 (>89); GLUCOSE 235 mg/dL (74-104); MAGNESIUM 2.5 mg/dL (1.7-2.3); POTASSIUM 4.8 mmol/L (3.5-4.5); SODIUM 122 mmol/L (135-145)
[2024-03-30 08:25] LABS: VBG BASE EXCESS -11.5 mmol/L (-2 - +2); VBG OXYGEN SATURATION 58.3 % (60-80); VBG PCO2 41.3 mmHg (41-51); VBG PH 7.205 (7.31-7.41); VBG PO2 29.5 mmHg (25-47); VBG TOTAL CO2 17.2 mmol/L (24-29)
[2024-03-30] MEDS: LOSARTAN 50 MG TABLET PO SCH (08:35)
[2024-03-30] MEDS: PANTOPRAZOLE 40 MG TABLET PO SCH (08:36)
[2024-03-30] MEDS: ASPIRIN 325 MG TABLET PO SCH (08:36)
[2024-03-30 08:37] LABS: BUN - BLOOD UREA NITROGEN 11 mg/dL (6-20)
[2024-03-30] MEDS: ACETAMINOPHEN 500 MG TABLET PO PRN (08:37)
[2024-03-30] MEDS: METOPROLOL TARTRATE 50 MG TABLET PO SCH ×2 (08:37→19:04)
[2024-03-30] MEDS: DEXTROSE 5%-0.9% NACL 1,000 ML IV STA (11:37)
[2024-03-30 12:52] LABS: ESTIMATED AVERAGE GLUCOSE 441 mg/dL (70-100)
[2024-03-30] MEDS ORDERED: INSULIN LISPRO 300 UNIT/3 ML PEN SUBQ STA (13:38)
[2024-03-30 14:22] LABS: CALCIUM 8.4 mg/dL (8.5-10.3); POTASSIUM 4.8 mmol/L (3.5-4.5)
[2024-03-30] MEDS ORDERED: SODIUM CHLORIDE FLUSH 0.9% 10 ML SYRINGE IVP PRN ×2 (14:51→16:03)
[2024-03-30] MEDS ORDERED: INSULIN REGULAR IN 0.9 % NS 100 UNIT/100 ML BAG IV SCH ×2 (15:00→17:00)
[2024-03-30] MEDS ORDERED: SODIUM CHLORIDE 0.9% IV STA (15:02)
[2024-03-30] MEDS ORDERED: INSULIN REGULAR HUMAN IV STA (15:02)
--- NOTE | 2024-03-30 15:05 | HISTORY & PHYSICAL EXAMINATION ---
Chief Complaint - Chief Complaint Chief Complaint: I felt bad History of Present Illness - Admitted From Admitted From:: [facility] Emergency Department - History Obtained From Records Reviewed: EMR History obtained from: Patient Exam Limitations: None - History of Present Illness HPI Comment/Other: Mr. Israel Paula is a 53yo male with history of CAD with [place] in 2020 leading to 3v CABG 03/2021, subsquent PCI to a bypass vessel in 2021, HTN, HLD, Type II DM and ADITHYA on CPAP who presents with not feeling well. The patient indicates that he has a history of type 2 diabetes which he has never required medications for and indicates that his last A1c was less than 6%, though this was checked several years ago. Since then he has been "diet controlled" and had no issues as far as he was aware. Last month the patient developed several kidney stones and after passing them he started to drink excess fluids, including lots of juices, milk and water. He was doing this in order to "flush my kidneys" and try to prevent further kidney stones from forming. He thinks that he typically drinks 2 to 3 gallons of fluid in a given day. Because of this he has been urinating frequently however recently he has been in a cycle of polydipsia due to increased thirst in addition to his polyuria. In the past week he has been having mental "fogginess", headache, malaise, fatigue and generalized weakness. He indicates that his appetite has still been good and he has been eating normally. He denies having any nausea, vomiting, diarrhea, melena, abdominal pain, acid reflux, chest pain, dyspnea, cough, fevers or chills. He indicates that over the past 6 to 7 months he has not been eating an appropriate diet and has been eating unhealthy foods due to significant stressors in his life. Due to his various symptoms over the past week, he started to check his glucose, with some values being greater than 400 and other values being in the 200s. He then was worried that he may have DKA, though he has never had this in the past. He obtained a urine ketone test and checked it 6 separate times, all of which showed his ketones were greater than 160. Due to this he came to the emergency department for further evaluation. In the emergency department his vitals were unremarkable and he did not appear confused though he did have dry mucous membranes. His labs revealed significant hyponatremia with a sodium of 118 along with an elevated anion gap and a serum CO2 of 15. His lipase was elevated in 300s however he did not clinically have pancreatitis. His urinalysis was concentrated with a pH of 6.0 and greater than 80 ketones. A VBG was obtained that showed a pH is 7.27 that was metabolic in nature. He was given isotonic normal saline fluids along with lactated Ringer's in the ER with improvement of his sodium to 123 however he did remain acidotic despite several pushes of IV insulin. His serum bicarb remained 15 and a VBG showed that his pH had decreased to 7.20. He was admitted for further care and evaluation of his hyponatremia and acidosis. History - Past Medical History Cardiovascular: reports: Hypertension, High cholesterol, Coronary artery disease (CABG in 03/2021 due to [place]; has PCI to bypass vessel in 2021), [place] Respiratory: reports: Other (ADITHYA on CPAP) Endocrine/Autoimmune: reports: Type 2 diabetes : reports: Kidney stones Psych: reports: None Musculoskeletal: reports: Other Derm: reports: None MRSA Hx?: No - Past Surgical History Ortho: reports: Other (Left knee arthroplasty) Cardiovascular: reports: CABG, Coronary stent HEENT: reports: Tonsil/Adenoidectomy - Family & Social History Family History: Other family: Diabetes, Type 2 - Substance History Use: Uses substance without health or social issues: NONE - POLST Patient has POLST: No Meds/Allgy - Home Medications Home Medications: Ambulatory Orders Medication Instructions Recorded Confirmed Aspirin [[place]] 162 mg PO DAILY 08/31/21 03/30/24 Metoprolol Tartrate [Lopressor] 37.5 mg PO DAILY 08/31/21 03/30/24 Losartan Potassium 25 mg PO DAILY 03/29/24 03/30/24 Atorvastatin [Lipitor] 80 mg PO QPM 03/30/24 03/30/24 - Allergies Allergies/Adverse Reactions: Allergies Allergy/AdvReac Type Severity Reaction Status Date / Time No Known Drug Allergies Allergy Verified 03/29/24 21:33 Review of Systems - Constitutional Constitutional: reports: Fatigue, Malaise, Weakness. denies: Fever, Chills - Eyes Eyes: reports: Blurred vision - Ears, Nose & Throat Ears, Nose & Throat: denies: Tinnitus - Cardiovascular Cariovascular: denies: Irregular heart rate, Palpitations, Chest pain, Lightheadedness, Syncope, Orthopnea - Respiratory Respiratory: denies: Cough, Sputum production - Gastrointestinal Gastrointestinal: denies: Abdominal pain, Diarrhea, Nausea, Vomiting - Genitourinary Genitourinary: reports: Frequency. denies: Dysuria - Musculoskeletal Musculoskeletal: reports: Muscle aches - Integumentary Integumentary: denies: Rash - Neurological Neurological: reports: Headache. denies: General weakness, Focal weakness, Dizziness - Psychiatric Psychiatric: denies: Depression, Suicidal - Endocrine Endocrine: reports: Polyuria, Polydypsia - Hematologic/Lymphatic Hematologic/Lymphatic: denies: Anemia, Bruising - All Other Systems All Other Systems: reports: Reviewed and negative Exam - Vital Signs Reviewed Vital Signs: Yes Vital Signs: Vital Signs x48h Pulse Resp BP Pulse Ox 03/30/24 14:21 72 18 125/80 98 03/30/24 12:00 88 22 148/94 H 99 03/30/24 10:00 77 20 129/86 H 95 03/30/24 07:17 75 21 133/82 H 95 - Physical Exam General Appearance: positive: No acute distress, Alert, Mild distress Eyes Bilateral: positive: Normal inspection, PERRL, EOMI ENT: positive: ENT inspection nml, Pharynx nml, Dry mucous membranes Neck: positive: Nml inspection, Thyroid nml, No JVD, Trachea midline Respiratory: positive: Chest non-tender, No respiratory distress, Breath sounds nml. negative: Wheezes, Rales, Rhonchi Cardiovascular: positive: Regular rate & rhythm, No gallop, Systolic murmur (2/6 systolic murmur at RUSB) Peripheral Pulses: positive: 2+ Abdomen: positive: Non-tender, No organomegaly, Nml bowel sounds, No distention Back: positive: Nml inspection Skin: positive: Color nml, No rash, Warm, Dry Extremities: positive: Non-tender, Nml appearance, No pedal edema Neurologic/Psychiatric: positive: Oriented x3, CN's nml (2-12), Motor nml, Sensation nml Sepsis Event Note (H) - Evaluation Current Stage of Sepsis: Ruled out Conclusion/Plan - Problem List (1) Hyponatremia Conclusion/Plan: His hyponatremia is most likely from excessive free water intake as he has been drinking 2 to 3 gallons of liquid per day, split between water, milk and fruit juices. He has been intentionally drinking that level as he was trying to prevent a repeat kidney stone, as he had several kidney stones approximately 1 month ago. -Placed on fluid restriction at 1500 mL/day. On IV fluids for DKA. -Check TSH, cortisol, triglyceride level. Obtain urine sodium. -Cannot check urine or serum osmolality as this takes several days to return, at which point it would likely not be clinically significant. -Monitoring BMP every 4 hours for DKA. Goal rate of increase is 6-8 mEq per 24- hour period. (2) DKA, type 2, not at goal Conclusion/Plan: Given that he has an elevated anion gap, metabolic acidosis and positive ketones, he was likely has DKA despite not having a significantly elevated glucose ("euglycemic DKA", though not quite euglycemic). -Will place on dextrose containing IV fluids and start an IV insulin drip. -Admit to the ICU for close monitoring. -A1c is 17.0%. -Follow BMP every 4 hours overnight and transition off IV insulin drip as indicated once serum bicarb improves. (3) Metabolic acidosis Conclusion/Plan: As noted above, he most likely does have a component of DKA. 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 -Check lactic acid. -Treat DKA as noted above. -If acidosis does not improve with IV insulin drip, then would favor a renal tubular acidosis diagnosis. (4) Elevated lipase Conclusion/Plan: He clinically has no signs or symptoms of pancreatitis, thus will not diagnose him with this. His abdominal exam is benign. The elevated lipase level is likely secondary to DKA, stress and type 2 diabetes. -Check triglyceride and lipid panel. Is possible that he may have significant hypertriglyceridemia. -Treat diabetes as noted above. -No need to repeat lipase unless he develops symptoms concerning for pancreatitis. No need for imaging at this time as well. (5) Essential hypertension Conclusion/Plan: Currently controlled. -Resume home metoprolol 25 mg in the morning and 12.5 mg in the evening. -Holding home losartan given his hyponatremia. (6) Dyslipidemia Conclusion/Plan: He indicates that he sometimes is not compliant with atorvastatin as he forgets to take it at nighttime. -Check lipid panel. -Resume home with atorvastatin 80 mg. (7) CAD (coronary artery disease) Conclusion/Plan: He has a history of a myocardial infarction that occurred in March and workup at that time revealed that he had triple-vessel disease. He underwent three- vessel CABG at [facility] in March 2021. He did well following this however in 2021 he did have chest pain and his minister assistant found that one of his bypass vessels was blocked, thus he has a stent in one of the bypass vessels. -No acute issues at this time. -Resume home aspirin 162 mg, metoprolol, atorvastatin. (8) ADITHYA on CPAP Conclusion/Plan: He indicates that a friend will bring his home CPAP machine to the hospital. -Can continue home CPAP at nighttime. - Lab Results Fish Bones: 03/30/24 05:35 03/30/24 13:53 - EKG Results EKG Interpreted Independently: Yes EKG Findings: per my read - NSR, HR 82, normal axis and intervals, no pathologic Q-waves, no ischemic ST-TW changes
[2024-03-30 15:45] LABS: THYROID STIMULATING HORMONE 2.55 uIU/mL (0.34-5.60)
[2024-03-30 15:59] LABS: TRIGLYCERIDES > 3000 mg/dL
[2024-03-30] MEDS: INSULIN REGULAR HUMAN IV SCH (16:37)
[2024-03-30] MEDS: SODIUM CHLORIDE 0.9% IV SCH (16:37)
[2024-03-30 16:40] LABS: LDL CHOLESTEROL,DIRECT 98 mg/dL (75-193)
[2024-03-30] MEDS: DEXTROSE-SOD CHLOR W/20 MEQ K 1,000 ML IV STA (16:58)
[2024-03-30] MEDS ORDERED: SODIUM CHLORIDE FLUSH 0.9% 10 ML SYRINGE IVP SCH (17:00)
[2024-03-30] MEDS: SODIUM CHLORIDE FLUSH 0.9% 10 ML SYRINGE IVP SCH (17:01)
--- NOTE | 2024-03-30 17:56 | PHARMACY PROGRESS NOTE ---
- Best Possible Medication History Admit Date and Time: 03/30/24 1453 Processed by: Pharmacy Medications reviewed in ED?: Yes Medication History completed: Yes Patient Interview: Completed Secondary Source(s): Pharmacy records, Insurance records As the person ultimately responsible for medication therapy, providers are able to order a medication from an existing home medication list in [facility] via the "Reconcile Routine" prior to Confirmation of that medication by decision support analyst. Such practice is discouraged except when the physician, in their clinical judgment, deems that a medical need exists for a medication without regard to previous use.
[2024-03-30 18:24] LABS: VBG PCO2 36.4 mmHg (41-51); VBG PH 7.272 (7.31-7.41); VBG PO2 25.6 mmHg (25-47)
[2024-03-30 18:25] LABS: VBG BASE EXCESS -9.6 mmol/L (-2 - +2); VBG HCO3 16.4 mmol/L (23-28); VBG OXYGEN SATURATION 56.8 % (60-80); VBG TOTAL CO2 17.5 mmol/L (24-29)
[2024-03-30 19:04] LABS: CALCIUM 8.5 mg/dL (8.5-10.3); POTASSIUM 4.2 mmol/L (3.5-4.5)
[2024-03-30] MEDS: ACETAMINOPHEN 325 MG TABLET PO PRN (19:06)
[2024-03-30 20:00] LABS: MAGNESIUM 2.6 mg/dL (1.7-2.3); PHOSPHORUS 1.2 mg/dL (2.5-5.0)
[2024-03-30] MEDS ORDERED: DEXTROSE-SOD CHLOR W/20 MEQ K 1,000 ML IV ONE (21:17)
[2024-03-30] MEDS ORDERED: POTASSIUM CHLOR 10 MEQ/100 ML 20 MEQ/200 ML BAG IV ONE (21:17)
[2024-03-30] MEDS ORDERED: ATORVASTATIN 40 MG TABLET ONE (21:17)
[2024-03-30] MEDS: POTASSIUM CHLOR 10 MEQ/100 ML 10 MEQ/100 ML BAG IV ONE (21:24)
[2024-03-30] MEDS: ATORVASTATIN 40 MG TABLET PO SCH (21:24)
[2024-03-30 22:04] LABS: CALCIUM 8.9 mg/dL (8.5-10.3); CREATININE 1.1 mg/dL (0.6-1.3); POTASSIUM 4.4 mmol/L (3.5-4.5)
[2024-03-30] MEDS ORDERED: NEUTRA-PHOS 250 MG TABLET ONE ×2 (22:18→23:27)
[2024-03-30] MEDS: NEUTRA-PHOS 250 MG TABLET PO SCH (22:22)
[2024-03-30] MEDS ORDERED: ACETAMINOPHEN 325 MG TABLET PO ONE (23:33)
[2024-03-31] MEDS ORDERED: DEXTROSE-SOD CHLOR W/20 MEQ K 1,000 ML IV STA (00:16)
[2024-03-31] MEDS ORDERED: DEXTROSE 5%-0.9% NACL 1,000 ML IV ONE (00:37)
[2024-03-31] MEDS: DEXTROSE 5%-0.9% NACL 1,000 ML IV STA (00:59)
[2024-03-31] MEDS ORDERED: ACETAMINOPHEN 325 MG TABLET PO ONE (03:57)
[2024-03-31] MEDS ORDERED: HYDROcod/ACETAM 7.5 MG/325 MG TABLET PO ONE (04:46)
[2024-03-31] MEDS ORDERED: LIDOCAINE PATCH 5% TOP ONE (04:47)
[2024-03-31] MEDS: HYDROcod/ACETAM 7.5 MG/325 MG TABLET PO PRN (04:51)
[2024-03-31] MEDS: LIDOCAINE PATCH 5% TOP PRN (04:52)
[2024-03-31 05:16] LABS: BASOPHILS # (AUTO) 0.1 10^3/uL (0.0-0.1); BASOPHILS % (AUTO) 0.8 %; EOSINOPHILS # (AUTO) 0.3 10^3/uL (0.0-0.7); EOSINOPHILS % (AUTO) 3.5 %; HCT - HEMATOCRIT 42.1 % (42.0-52.0); HGB - HEMOGLOBIN 14.9 g/dL (14.0-18.0); LYMPHOCYTES # (AUTO) 2.4 10^3/uL (1.5-3.5); LYMPHOCYTES % (AUTO) 31.9 %; MEAN CORPUSCULAR HEMOGLOBIN 33.6 pg (27.0-31.0); MEAN CORPUSCULAR HGB CONC 35.4 g/dL (32.0-36.0); MEAN PLATELET VOLUME 11.1 fL (7.4-11.4); MONOCYTES # (AUTO) 0.6 10^3/uL (0.0-1.0); MONOCYTES % (AUTO) 8.1 %; NEUTROPHILS % (AUTO) 53.3 %; PLT - PLATELET COUNT 215 10^3/uL (130-450); RED BLOOD COUNT 4.43 10^6/uL (4.70-6.10); RED CELL DISTRIBUTION WIDTH 12.8 % (12.0-15.0); WHITE BLOOD COUNT 7.5 x10^3/uL (4.8-10.8)
[2024-03-31 05:53] LABS: CALCIUM, IONIZED 1.17 mmol/L (1.15-1.33)
[2024-03-31 05:54] LABS: VBG PH 7.196 (7.31-7.41)
[2024-03-31 06:25] LABS: BUN - BLOOD UREA NITROGEN 10 mg/dL (6-20); CALCIUM 8.7 mg/dL (8.5-10.3); CARBON DIOXIDE - CO2 16 mmol/L (21-32); CHLORIDE 98 mmol/L (101-111); CREATININE 0.9 mg/dL (0.6-1.3); GFR - MDRD 89 (>89); GLUCOSE 193 mg/dL (74-104); POTASSIUM 4.3 mmol/L (3.5-4.5); SODIUM 125 mmol/L (135-145); TRIGLYCERIDES > 3000 mg/dL
[2024-03-31 06:26] LABS: MAGNESIUM 2.2 mg/dL (1.7-2.3); PHOSPHORUS 2.6 mg/dL (2.5-5.0)
[2024-03-31 06:43] LABS: LDL CHOLESTEROL,DIRECT 101 mg/dL (75-193)
[2024-03-31] MEDS ORDERED: ASPIRIN CHEW 81 MG TABLET ONE (06:50)
[2024-03-31] MEDS ORDERED: METOPROLOL SUCCINATE 25 MG TABLET PO ONE (06:50)
[2024-03-31] MEDS ORDERED: PANTOPRAZOLE 40 MG TABLET ONE (06:50)
[2024-03-31] MEDS ORDERED: METOPROLOL TARTRATE 50 MG TABLET ONE (07:00)
[2024-03-31] MEDS ORDERED: POTASSIUM CHLOR 10 MEQ/100 ML 20 MEQ/200 ML BAG IV ONE (07:00)
[2024-03-31] MEDS: POTASSIUM CHLOR 10 MEQ/100 ML 10 MEQ/100 ML BAG IV ONE (07:07)
[2024-03-31 08:05] LABS: HDL CHOLESTEROL 16 mg/dL; LDLD/HDL RATIO 6.3 (<3.6)
[2024-03-31 08:10] LABS: CHOLESTEROL 686 mg/dL
[2024-03-31] MEDS ORDERED: ENOXAPARIN 40 MG/0.4 ML SYRINGE SUBQ SCH (09:00)
[2024-03-31] MEDS: ENOXAPARIN 40 MG/0.4 ML SYRINGE SUBQ SCH (10:09)
[2024-03-31] MEDS: FENOFIBRATE 48 MG TABLET PO SCH ×2 (10:15→10:20)
[2024-03-31] MEDS ORDERED: SODIUM CHLORIDE 0.9% 100ML 100 ML IV ONE ×3 (11:35→19:56)
[2024-03-31 11:57] LABS: CALCIUM, IONIZED 1.21 mmol/L (1.15-1.33); VBG PH 7.261 (7.31-7.41)
[2024-03-31 12:13] LABS: MAGNESIUM 2.1 mg/dL (1.7-2.3); PHOSPHORUS 1.5 mg/dL (2.5-5.0); POTASSIUM 3.8 mmol/L (3.5-4.5)
[2024-03-31] MEDS: SODIUM BICARBONATE 150 MEQ in DEXTROSE 5% 1,000 ML IV SCH (12:33)
[2024-03-31] MEDS ORDERED: POTASSIUM PHOSPHATE 21 MMOL in SODIUM CHLORIDE 0.9% 250 ML IV ONE (13:25)
[2024-03-31] MEDS ORDERED: INSULIN REGULAR HUMAN 100 UNIT in SODIUM CHLORIDE 0.9% 100ML 99 ML IV SCH (13:32)
[2024-03-31] MEDS: INSULIN REGULAR HUMAN 100 UNIT in SODIUM CHLORIDE 0.9% 100ML 99 ML IV SCH (14:26)
[2024-03-31] MEDS: POTASSIUM CHLORIDE 20 MEQ TABLET PO ONE (14:31)
[2024-03-31] MEDS: POTASSIUM PHOSPHATE 21 MMOL in SODIUM CHLORIDE 0.9% 250 ML IV ONE (14:32)
--- NOTE | 2024-03-31 16:18 | PROVIDER PROGRESS NOTE ---
Subjective - Prog Note Date Prog Note Date: 03/31/24 Prog Note Time: 16:15 - Subjective Pt reports feeling: Improved Subjective: No acute events since admission. He remains on an IV insulin drip overnight however he has stayed persistently acidotic. His triglyceride level on presentation was greater than 3000 (our lab machine could not go higher than 3000, but his value is well over 3000). His triglyceride level this morning again was greater than 3000. He denies having any chest pain, shortness of breath, cough, nausea, vomiting or diarrhea. He does complain of low back pain with sciatic pain radiating down into his right leg. He indicates this has been an issue recently as an outpatient but was not causing any problem on admission until he was laying in the hospital bed overnight. Denies having any numbness in the right leg and has no saddle anesthesia. Objective - Vital Signs/Intake & Output Reviewed Vital Signs: Yes Vital Signs: Vital Signs x48h Temp Pulse Resp BP Pulse Ox 03/31/24 15:00 85 21 126/72 95 03/31/24 14:00 80 15 124/68 95 03/31/24 13:00 79 16 123/76 96 03/31/24 12:00 82 20 150/82 H 96 03/31/24 11:00 98 22 153/80 H 97 03/31/24 10:00 81 19 141/78 H 96 03/31/24 09:00 36.8 C 86 20 137/76 H 97 Intake & Output: Intake & Output 03/28/24 03/29/24 03/30/24 03/31/24 23:59 23:59 23:59 23:59 Intake Total 2819.150 981.833 Output Total 1150 1125 Balance 1669.150 -143.167 - Objective General Appearance: positive: Other (Alert, oriented, appears uncomfortable and standing at the side of bed to ease the pain of his back.) Eyes Bilateral: positive: Normal inspection, PERRL, EOMI ENT: positive: ENT inspection nml, Pharynx nml, No signs of dehydration Neck: positive: Nml inspection, Thyroid nml, No JVD, Trachea midline Respiratory: positive: No respiratory distress, Breath sounds nml. negative: Wheezes, Rales, Rhonchi Cardiovascular: positive: Regular rate & rhythm, No gallop, Systolic murmur (Soft 2/6 systolic murmur right upper sternal border) Peripheral Pulses: 2+ Dorsalis pedis (R), 2+ Dorsalis pedis (L) Abdomen: positive: Non-tender, No organomegaly, Nml bowel sounds, No distention Back: positive: Nml inspection Skin: positive: Color nml, No rash, Warm, Dry Extremities: positive: Nml appearance, No pedal edema Neurologic/Psychiatric: positive: Oriented x3, CN's nml (2-12), Motor nml, Sensation nml - Lab Results Fish Bones: 03/31/24 04:12 03/31/24 11:36 Other Labs: Lab Results x24hrs 03/31/24 03/31/24 03/31/24 Range/Units 16:09 14:31 12:00 WBC (4.8-10.8) x10^3/uL RBC (4.70-6.10) 10^6/uL Hgb (14.0-18.0) g/dL Hct (42.0-52.0) % MCV (80.0-94.0) fL MCH (27.0-31.0) pg MCHC (32.0-36.0) g/dL RDW (12.0-15.0) % Plt Count (130-450) 10^3/uL MPV (7.4-11.4) fL Neut # (Auto) (1.5-6.6) 10^3/uL Lymph # (Auto) (1.5-3.5) 10^3/uL Schleicher # (Auto) (0.0-1.0) 10^3/uL Eos # (Auto) (0.0-0.7) 10^3/uL Baso # (Auto) (0.0-0.1) 10^3/uL Absolute Nucleated RBC x10^3/uL Nucleated RBC % /100WBC VBG pH (7.31-7.41) VBG pCO2 (41-51) mmHg VBG pO2 (25-47) mmHg VBG HCO3 (23-28) mmol/L VBG Total CO2 (24-29) mmol/L VBG O2 Saturation (60-80) % VBG Base Excess (-2 - +2) mmol/L Ionized Calcium (1.15-1.33) mmol/L Sodium (135-145) mmol/L Potassium (3.5-4.5) mmol/L Chloride (101-111) mmol/L Carbon Dioxide (21-32) mmol/L Anion Gap (6-13) BUN (6-20) mg/dL Creatinine (0.6-1.3) mg/dL Estimated GFR (MDRD) (>89) Glucose (74-104) mg/dL POC Whole Bld Glucose 141 H 118 H 181 H (70 - 100) mg/dL Calcium (8.5-10.3) mg/dL Phosphorus (2.5-5.0) mg/dL Magnesium (1.7-2.3) mg/dL Triglycerides mg/dL Cholesterol ( - 200) mg/dL LDL Cholesterol Direct (75-193) mg/dL HDL Cholesterol (60 - ) mg/dL dLDL/HDL Ratio Nasal Screen MRSA (PCR) (NEGATIVE) 03/31/24 03/31/24 03/31/24 Range/Units 11:36 11:36 10:10 WBC (4.8-10.8) x10^3/uL RBC (4.70-6.10) 10^6/uL Hgb (14.0-18.0) g/dL Hct (42.0-52.0) % MCV (80.0-94.0) fL MCH (27.0-31.0) pg MCHC (32.0-36.0) g/dL RDW (12.0-15.0) % Plt Count (130-450) 10^3/uL MPV (7.4-11.4) fL Neut # (Auto) (1.5-6.6) 10^3/uL Lymph # (Auto) (1.5-3.5) 10^3/uL Schleicher # (Auto) (0.0-1.0) 10^3/uL Eos # (Auto) (0.0-0.7) 10^3/uL Baso # (Auto) (0.0-0.1) 10^3/uL Absolute Nucleated RBC x10^3/uL Nucleated RBC % /100WBC VBG pH 7.261 L (7.31-7.41) VBG pCO2 (41-51) mmHg VBG pO2 (25-47) mmHg VBG HCO3 (23-28) mmol/L VBG Total CO2 (24-29) mmol/L VBG O2 Saturation (60-80) % VBG Base Excess (-2 - +2) mmol/L Ionized Calcium 1.21 (1.15-1.33) mmol/L Sodium (135-145) mmol/L Potassium 3.8 (3.5-4.5) mmol/L Chloride (101-111) mmol/L Carbon Dioxide (21-32) mmol/L Anion Gap (6-13) BUN (6-20) mg/dL Creatinine (0.6-1.3) mg/dL Estimated GFR (MDRD) (>89) Glucose (74-104) mg/dL POC Whole Bld Glucose 242 H (70 - 100) mg/dL Calcium (8.5-10.3) mg/dL Phosphorus 1.5 L (2.5-5.0) mg/dL Magnesium 2.1 (1.7-2.3) mg/dL Triglycerides mg/dL Cholesterol ( - 200) mg/dL LDL Cholesterol Direct (75-193) mg/dL HDL Cholesterol (60 - ) mg/dL dLDL/HDL Ratio Nasal Screen MRSA (PCR) (NEGATIVE) 03/31/24 03/31/24 03/31/24 Range/Units 09:01 08:02 06:50 WBC (4.8-10.8) x10^3/uL RBC (4.70-6.10) 10^6/uL Hgb (14.0-18.0) g/dL Hct (42.0-52.0) % MCV (80.0-94.0) fL MCH (27.0-31.0) pg MCHC (32.0-36.0) g/dL RDW (12.0-15.0) % Plt Count (130-450) 10^3/uL MPV (7.4-11.4) fL Neut # (Auto) (1.5-6.6) 10^3/uL Lymph # (Auto) (1.5-3.5) 10^3/uL Schleicher # (Auto) (0.0-1.0) 10^3/uL Eos # (Auto) (0.0-0.7) 10^3/uL Baso # (Auto) (0.0-0.1) 10^3/uL Absolute Nucleated RBC x10^3/uL Nucleated RBC % /100WBC VBG pH (7.31-7.41) VBG pCO2 (41-51) mmHg VBG pO2 (25-47) mmHg VBG HCO3 (23-28) mmol/L VBG Total CO2 (24-29) mmol/L VBG O2 Saturation (60-80) % VBG Base Excess (-2 - +2) mmol/L Ionized Calcium (1.15-1.33) mmol/L Sodium (135-145) mmol/L Potassium (3.5-4.5) mmol/L Chloride (101-111) mmol/L Carbon Dioxide (21-32) mmol/L Anion Gap (6-13) BUN (6-20) mg/dL Creatinine (0.6-1.3) mg/dL Estimated GFR (MDRD) (>89) Glucose (74-104) mg/dL POC Whole Bld Glucose 245 H 214 H 204 H (70 - 100) mg/dL Calcium (8.5-10.3) mg/dL Phosphorus (2.5-5.0) mg/dL Magnesium (1.7-2.3) mg/dL Triglycerides mg/dL Cholesterol ( - 200) mg/dL LDL Cholesterol Direct (75-193) mg/dL HDL Cholesterol (60 - ) mg/dL dLDL/HDL Ratio Nasal Screen MRSA (PCR) (NEGATIVE) 03/31/24 03/31/24 03/31/24 Range/Units 06:08 04:59 04:12 WBC (4.8-10.8) x10^3/uL RBC (4.70-6.10) 10^6/uL Hgb (14.0-18.0) g/dL Hct (42.0-52.0) % MCV (80.0-94.0) fL MCH (27.0-31.0) pg MCHC (32.0-36.0) g/dL RDW (12.0-15.0) % Plt Count (130-450) 10^3/uL MPV (7.4-11.4) fL Neut # (Auto) (1.5-6.6) 10^3/uL Lymph # (Auto) (1.5-3.5) 10^3/uL Schleicher # (Auto) (0.0-1.0) 10^3/uL Eos # (Auto) (0.0-0.7) 10^3/uL Baso # (Auto) (0.0-0.1) 10^3/uL Absolute Nucleated RBC x10^3/uL Nucleated RBC % /100WBC VBG pH 7.196 L* (7.31-7.41) VBG pCO2 (41-51) mmHg VBG pO2 (25-47) mmHg VBG HCO3 (23-28) mmol/L VBG Total CO2 (24-29) mmol/L VBG O2 Saturation (60-80) % VBG Base Excess (-2 - +2) mmol/L Ionized Calcium 1.17 (1.15-1.33) mmol/L Sodium (135-145) mmol/L Potassium (3.5-4.5) mmol/L Chloride (101-111) mmol/L Carbon Dioxide (21-32) mmol/L Anion Gap (6-13) BUN (6-20) mg/dL Creatinine (0.6-1.3) mg/dL Estimated GFR (MDRD) (>89) Glucose (74-104) mg/dL POC Whole Bld Glucose 243 H 222 H (70 - 100) mg/dL Calcium (8.5-10.3) mg/dL Phosphorus (2.5-5.0) mg/dL Magnesium (1.7-2.3) mg/dL Triglycerides mg/dL Cholesterol ( - 200) mg/dL LDL Cholesterol Direct (75-193) mg/dL HDL Cholesterol (60 - ) mg/dL dLDL/HDL Ratio Nasal Screen MRSA (PCR) (NEGATIVE) 03/31/24 03/31/24 03/31/24 Range/Units 04:12 04:12 04:12 WBC 7.5 (4.8-10.8) x10^3/uL RBC 4.43 L (4.70-6.10) 10^6/uL Hgb 14.9 (14.0-18.0) g/dL Hct 42.1 (42.0-52.0) % MCV 95.0 H (80.0-94.0) fL MCH 33.6 H (27.0-31.0) pg MCHC 35.4 (32.0-36.0) g/dL RDW 12.8 (12.0-15.0) % Plt Count 215 (130-450) 10^3/uL MPV 11.1 (7.4-11.4) fL Neut # (Auto) 4.0 (1.5-6.6) 10^3/uL Lymph # (Auto) 2.4 (1.5-3.5) 10^3/uL Schleicher # (Auto) 0.6 (0.0-1.0) 10^3/uL Eos # (Auto) 0.3 (0.0-0.7) 10^3/uL Baso # (Auto) 0.1 (0.0-0.1) 10^3/uL Absolute Nucleated RBC 0.00 x10^3/uL Nucleated RBC % 0.0 /100WBC VBG pH (7.31-7.41) VBG pCO2 (41-51) mmHg VBG pO2 (25-47) mmHg VBG HCO3 (23-28) mmol/L VBG Total CO2 (24-29) mmol/L VBG O2 Saturation (60-80) % VBG Base Excess (-2 - +2) mmol/L Ionized Calcium (1.15-1.33) mmol/L Sodium 125 L (135-145) mmol/L Potassium 4.3 (3.5-4.5) mmol/L Chloride 98 L (101-111) mmol/L Carbon Dioxide 16 L (21-32) mmol/L Anion Gap 11.0 (6-13) BUN 10 (6-20) mg/dL Creatinine 0.9 (0.6-1.3) mg/dL Estimated GFR (MDRD) 89 (>89) Glucose 193 H (74-104) mg/dL POC Whole Bld Glucose (70 - 100) mg/dL Calcium 8.7 (8.5-10.3) mg/dL Phosphorus 2.6 (2.5-5.0) mg/dL Magnesium 2.2 (1.7-2.3) mg/dL Triglycerides > 3000 mg/dL Cholesterol 686 H ( - 200) mg/dL LDL Cholesterol Direct 101 (75-193) mg/dL HDL Cholesterol 16 L (60 - ) mg/dL dLDL/HDL Ratio 6.3 Nasal Screen MRSA (PCR) (NEGATIVE) 03/31/24 03/31/24 03/31/24 Range/Units 04:11 03:01 01:57 WBC (4.8-10.8) x10^3/uL RBC (4.70-6.10) 10^6/uL Hgb (14.0-18.0) g/dL Hct (42.0-52.0) % MCV (80.0-94.0) fL MCH (27.0-31.0) pg MCHC (32.0-36.0) g/dL RDW (12.0-15.0) % Plt Count (130-450) 10^3/uL MPV (7.4-11.4) fL Neut # (Auto) (1.5-6.6) 10^3/uL Lymph # (Auto) (1.5-3.5) 10^3/uL Schleicher # (Auto) (0.0-1.0) 10^3/uL Eos # (Auto) (0.0-0.7) 10^3/uL Baso # (Auto) (0.0-0.1) 10^3/uL Absolute Nucleated RBC x10^3/uL Nucleated RBC % /100WBC VBG pH (7.31-7.41) VBG pCO2 (41-51) mmHg VBG pO2 (25-47) mmHg VBG HCO3 (23-28) mmol/L VBG Total CO2 (24-29) mmol/L VBG O2 Saturation (60-80) % VBG Base Excess (-2 - +2) mmol/L Ionized Calcium (1.15-1.33) mmol/L Sodium (135-145) mmol/L Potassium (3.5-4.5) mmol/L Chloride (101-111) mmol/L Carbon Dioxide (21-32) mmol/L Anion Gap (6-13) BUN (6-20) mg/dL Creatinine (0.6-1.3) mg/dL Estimated GFR (MDRD) (>89) Glucose (74-104) mg/dL POC Whole Bld Glucose 228 H 179 H 153 H (70 - 100) mg/dL Calcium (8.5-10.3) mg/dL Phosphorus (2.5-5.0) mg/dL Magnesium (1.7-2.3) mg/dL Triglycerides mg/dL Cholesterol ( - 200) mg/dL LDL Cholesterol Direct (75-193) mg/dL HDL Cholesterol (60 - ) mg/dL dLDL/HDL Ratio Nasal Screen MRSA (PCR) (NEGATIVE) 03/31/24 03/30/24 03/30/24 Range/Units 00:57 23:36 22:58 WBC (4.8-10.8) x10^3/uL RBC (4.70-6.10) 10^6/uL Hgb (14.0-18.0) g/dL Hct (42.0-52.0) % MCV (80.0-94.0) fL MCH (27.0-31.0) pg MCHC (32.0-36.0) g/dL RDW (12.0-15.0) % Plt Count (130-450) 10^3/uL MPV (7.4-11.4) fL Neut # (Auto) (1.5-6.6) 10^3/uL Lymph # (Auto) (1.5-3.5) 10^3/uL Schleicher # (Auto) (0.0-1.0) 10^3/uL Eos # (Auto) (0.0-0.7) 10^3/uL Baso # (Auto) (0.0-0.1) 10^3/uL Absolute Nucleated RBC x10^3/uL Nucleated RBC % /100WBC VBG pH (7.31-7.41) VBG pCO2 (41-51) mmHg VBG pO2 (25-47) mmHg VBG HCO3 (23-28) mmol/L VBG Total CO2 (24-29) mmol/L VBG O2 Saturation (60-80) % VBG Base Excess (-2 - +2) mmol/L Ionized Calcium (1.15-1.33) mmol/L Sodium (135-145) mmol/L Potassium (3.5-4.5) mmol/L Chloride (101-111) mmol/L Carbon Dioxide (21-32) mmol/L Anion Gap (6-13) BUN (6-20) mg/dL Creatinine (0.6-1.3) mg/dL Estimated GFR (MDRD) (>89) Glucose (74-104) mg/dL POC Whole Bld Glucose 117 H 93 134 H (70 - 100) mg/dL Calcium (8.5-10.3) mg/dL Phosphorus (2.5-5.0) mg/dL Magnesium (1.7-2.3) mg/dL Triglycerides mg/dL Cholesterol ( - 200) mg/dL LDL Cholesterol Direct (75-193) mg/dL HDL Cholesterol (60 - ) mg/dL dLDL/HDL Ratio Nasal Screen MRSA (PCR) (NEGATIVE) 03/30/24 03/30/24 03/30/24 Range/Units 21:59 21:19 20:54 WBC (4.8-10.8) x10^3/uL RBC (4.70-6.10) 10^6/uL Hgb (14.0-18.0) g/dL Hct (42.0-52.0) % MCV (80.0-94.0) fL MCH (27.0-31.0) pg MCHC (32.0-36.0) g/dL RDW (12.0-15.0) % Plt Count (130-450) 10^3/uL MPV (7.4-11.4) fL Neut # (Auto) (1.5-6.6) 10^3/uL Lymph # (Auto) (1.5-3.5) 10^3/uL Schleicher # (Auto) (0.0-1.0) 10^3/uL Eos # (Auto) (0.0-0.7) 10^3/uL Baso # (Auto) (0.0-0.1) 10^3/uL Absolute Nucleated RBC x10^3/uL Nucleated RBC % /100WBC VBG pH (7.31-7.41) VBG pCO2 (41-51) mmHg VBG pO2 (25-47) mmHg VBG HCO3 (23-28) mmol/L VBG Total CO2 (24-29) mmol/L VBG O2 Saturation (60-80) % VBG Base Excess (-2 - +2) mmol/L Ionized Calcium (1.15-1.33) mmol/L Sodium 124 L (135-145) mmol/L Potassium 4.4 (3.5-4.5) mmol/L Chloride 99 L (101-111) mmol/L Carbon Dioxide 15 L (21-32) mmol/L Anion Gap 10.0 (6-13) BUN 12 (6-20) mg/dL Creatinine 1.1 (0.6-1.3) mg/dL Estimated GFR (MDRD) 70 L (>89) Glucose 85 (74-104) mg/dL POC Whole Bld Glucose 132 H 137 H (70 - 100) mg/dL Calcium 8.9 (8.5-10.3) mg/dL Phosphorus (2.5-5.0) mg/dL Magnesium (1.7-2.3) mg/dL Triglycerides mg/dL Cholesterol ( - 200) mg/dL LDL Cholesterol Direct (75-193) mg/dL HDL Cholesterol (60 - ) mg/dL dLDL/HDL Ratio Nasal Screen MRSA (PCR) (NEGATIVE) 03/30/24 03/30/24 03/30/24 Range/Units 20:05 19:56 19:25 WBC (4.8-10.8) x10^3/uL RBC (4.70-6.10) 10^6/uL Hgb (14.0-18.0) g/dL Hct (42.0-52.0) % MCV (80.0-94.0) fL MCH (27.0-31.0) pg MCHC (32.0-36.0) g/dL RDW (12.0-15.0) % Plt Count (130-450) 10^3/uL MPV (7.4-11.4) fL Neut # (Auto) (1.5-6.6) 10^3/uL Lymph # (Auto) (1.5-3.5) 10^3/uL Schleicher # (Auto) (0.0-1.0) 10^3/uL Eos # (Auto) (0.0-0.7) 10^3/uL Baso # (Auto) (0.0-0.1) 10^3/uL Absolute Nucleated RBC x10^3/uL Nucleated RBC % /100WBC VBG pH (7.31-7.41) VBG pCO2 (41-51) mmHg VBG pO2 (25-47) mmHg VBG HCO3 (23-28) mmol/L VBG Total CO2 (24-29) mmol/L VBG O2 Saturation (60-80) % VBG Base Excess (-2 - +2) mmol/L Ionized Calcium (1.15-1.33) mmol/L Sodium (135-145) mmol/L Potassium (3.5-4.5) mmol/L Chloride (101-111) mmol/L Carbon Dioxide (21-32) mmol/L Anion Gap (6-13) BUN (6-20) mg/dL Creatinine (0.6-1.3) mg/dL Estimated GFR (MDRD) (>89) Glucose 123 H 168 H (74-104) mg/dL POC Whole Bld Glucose 193 H (70 - 100) mg/dL Calcium (8.5-10.3) mg/dL Phosphorus 1.2 L (2.5-5.0) mg/dL Magnesium 2.6 H (1.7-2.3) mg/dL Triglycerides mg/dL Cholesterol ( - 200) mg/dL LDL Cholesterol Direct (75-193) mg/dL HDL Cholesterol (60 - ) mg/dL dLDL/HDL Ratio Nasal Screen MRSA (PCR) (NEGATIVE) 03/30/24 03/30/24 03/30/24 Range/Units 18:54 18:20 18:20 WBC (4.8-10.8) x10^3/uL RBC (4.70-6.10) 10^6/uL Hgb (14.0-18.0) g/dL Hct (42.0-52.0) % MCV (80.0-94.0) fL MCH (27.0-31.0) pg MCHC (32.0-36.0) g/dL RDW (12.0-15.0) % Plt Count (130-450) 10^3/uL MPV (7.4-11.4) fL Neut # (Auto) (1.5-6.6) 10^3/uL Lymph # (Auto) (1.5-3.5) 10^3/uL Schleicher # (Auto) (0.0-1.0) 10^3/uL Eos # (Auto) (0.0-0.7) 10^3/uL Baso # (Auto) (0.0-0.1) 10^3/uL Absolute Nucleated RBC x10^3/uL Nucleated RBC % /100WBC VBG pH 7.272 L (7.31-7.41) VBG pCO2 36.4 L (41-51) mmHg VBG pO2 25.6 (25-47) mmHg VBG HCO3 16.4 L (23-28) mmol/L VBG Total CO2 17.5 L (24-29) mmol/L VBG O2 Saturation 56.8 L (60-80) % VBG Base Excess -9.6 L (-2 - +2) mmol/L Ionized Calcium (1.15-1.33) mmol/L Sodium 122 L (135-145) mmol/L Potassium 4.2 (3.5-4.5) mmol/L Chloride 98 L (101-111) mmol/L Carbon Dioxide 14 L (21-32) mmol/L Anion Gap 10.0 (6-13) BUN 11 (6-20) mg/dL Creatinine 1.0 (0.6-1.3) mg/dL Estimated GFR (MDRD) 78 L (>89) Glucose 232 H (74-104) mg/dL POC Whole Bld Glucose 265 H (70 - 100) mg/dL Calcium 8.5 (8.5-10.3) mg/dL Phosphorus (2.5-5.0) mg/dL Magnesium (1.7-2.3) mg/dL Triglycerides mg/dL Cholesterol ( - 200) mg/dL LDL Cholesterol Direct (75-193) mg/dL HDL Cholesterol (60 - ) mg/dL dLDL/HDL Ratio Nasal Screen MRSA (PCR) (NEGATIVE) 03/30/24 03/30/24 03/30/24 Range/Units 18:00 17:23 17:04 WBC (4.8-10.8) x10^3/uL RBC (4.70-6.10) 10^6/uL Hgb (14.0-18.0) g/dL Hct (42.0-52.0) % MCV (80.0-94.0) fL MCH (27.0-31.0) pg MCHC (32.0-36.0) g/dL RDW (12.0-15.0) % Plt Count (130-450) 10^3/uL MPV (7.4-11.4) fL Neut # (Auto) (1.5-6.6) 10^3/uL Lymph # (Auto) (1.5-3.5) 10^3/uL Schleicher # (Auto) (0.0-1.0) 10^3/uL Eos # (Auto) (0.0-0.7) 10^3/uL Baso # (Auto) (0.0-0.1) 10^3/uL Absolute Nucleated RBC x10^3/uL Nucleated RBC % /100WBC VBG pH (7.31-7.41) VBG pCO2 (41-51) mmHg VBG pO2 (25-47) mmHg VBG HCO3 (23-28) mmol/L VBG Total CO2 (24-29) mmol/L VBG O2 Saturation (60-80) % VBG Base Excess (-2 - +2) mmol/L Ionized Calcium (1.15-1.33) mmol/L Sodium (135-145) mmol/L Potassium (3.5-4.5) mmol/L Chloride (101-111) mmol/L Carbon Dioxide (21-32) mmol/L Anion Gap (6-13) BUN (6-20) mg/dL Creatinine (0.6-1.3) mg/dL Estimated GFR (MDRD) (>89) Glucose 196 H (74-104) mg/dL POC Whole Bld Glucose 305 H 251 H (70 - 100) mg/dL Calcium (8.5-10.3) mg/dL Phosphorus (2.5-5.0) mg/dL Magnesium (1.7-2.3) mg/dL Triglycerides mg/dL Cholesterol ( - 200) mg/dL LDL Cholesterol Direct (75-193) mg/dL HDL Cholesterol (60 - ) mg/dL dLDL/HDL Ratio Nasal Screen MRSA (PCR) (NEGATIVE) 03/30/24 03/30/24 03/30/24 Range/Units 16:10 15:40 15:07 WBC (4.8-10.8) x10^3/uL RBC (4.70-6.10) 10^6/uL Hgb (14.0-18.0) g/dL Hct (42.0-52.0) % MCV (80.0-94.0) fL MCH (27.0-31.0) pg MCHC (32.0-36.0) g/dL RDW (12.0-15.0) % Plt Count (130-450) 10^3/uL MPV (7.4-11.4) fL Neut # (Auto) (1.5-6.6) 10^3/uL Lymph # (Auto) (1.5-3.5) 10^3/uL Schleicher # (Auto) (0.0-1.0) 10^3/uL Eos # (Auto) (0.0-0.7) 10^3/uL Baso # (Auto) (0.0-0.1) 10^3/uL Absolute Nucleated RBC x10^3/uL Nucleated RBC % /100WBC VBG pH (7.31-7.41) VBG pCO2 (41-51) mmHg VBG pO2 (25-47) mmHg VBG HCO3 (23-28) mmol/L VBG Total CO2 (24-29) mmol/L VBG O2 Saturation (60-80) % VBG Base Excess (-2 - +2) mmol/L Ionized Calcium (1.15-1.33) mmol/L Sodium (135-145) mmol/L Potassium (3.5-4.5) mmol/L Chloride (101-111) mmol/L Carbon Dioxide (21-32) mmol/L Anion Gap (6-13) BUN (6-20) mg/dL Creatinine (0.6-1.3) mg/dL Estimated GFR (MDRD) (>89) Glucose 247 H (74-104) mg/dL POC Whole Bld Glucose (70 - 100) mg/dL Calcium (8.5-10.3) mg/dL Phosphorus (2.5-5.0) mg/dL Magnesium (1.7-2.3) mg/dL Triglycerides mg/dL Cholesterol ( - 200) mg/dL LDL Cholesterol Direct 98 (75-193) mg/dL HDL Cholesterol (60 - ) mg/dL dLDL/HDL Ratio TNP Nasal Screen MRSA (PCR) NEGATIVE (NEGATIVE) Sepsis Event Note (H) - Evaluation Current Stage of Sepsis: Ruled out Assessment/Plan - Problem List (1) Hyponatremia Impression: His hyponatremia is most likely from excessive free water intake as he has been drinking 2 to 3 gallons of liquid per day, split between water, milk and fruit juices. He has been intentionally drinking that level as he was trying to prevent a repeat kidney stone, as he had several kidney stones approximately 1 month ago. He probably also has a component of pseudohyponatremia due to sig nificant hypertriglyceridemia. -Placed on fluid restriction at 1500 mL/day. -TSH normal, cortisol normal. Urine sodium ordered, but not obtained. -Triglyceride level > 3000, which could be contributing to his hyponatremia. -Sodium level has been increasing at an appropriate rate, currently at 125 from 118 on 03/29/24 at 22:00. -Monitor BMP throughout the day. Continue fluid restriction and treat t riglyceridemia as noted below. (2) Uncontrolled type 2 diabetes mellitus with hyperglycemia Impression: Initially felt to have DKA given his acidosis, it is now more likely that he has an RTA causing his acidosis as he has not improved with IV insulin drip and does not have an anion gap. His hyperglycemia is persisting despite IV insulin infusion though. -A1c is 17.0%. Will need insulin therapy at the time of discharge. -Will be continuing IV insulin drip for his hypertriglyceridemia as noted below; no longer on DKA protocol but will need to remain on IV insulin until triglycerides < 500-1000. (3) Metabolic acidosis Impression: Initially felt that he had a component of DKA at presentation, however since he has not improved with IV insulin drip send he [place] has an anion gap, I am concerned that he may have an underlying RTA secondary to uncontrolled diabetes. -Will place on IV fluids with bicarb infusion to improve his acidosis. -Can transition to oral bicarb hopefully tomorrow. -Monitor BMP while on IV insulin drip and IV bicarb drip. (4) Hypertriglyceridemia Impression: He has significant hypertriglyceridemia with his admission triglyceride level greater than 3000, with her laboratory machines unable to determine the exact level. -Repeat triglyceride level today despite being on IV insulin drip overnight is still greater than 3000. -Will increase IV insulin drip to 0.12 units/kg/h. -Repeat daily triglyceride level. -As he does not have acute pancreatitis, we do not have to get it strictly down to less than 500 prior to transitioning off insulin drip. -Ideally would like his triglyceride level less than 1000 prior to coming off IV insulin. -In addition to his home atorvastatin 80 mg, will add fenofibrate. (5) Elevated lipase Impression: He clinically has no signs or symptoms of pancreatitis, thus will not diagnose him with this. His abdominal exam is benign. The elevated lipase level is likely secondary to hypertriglyceridemia, stress and type 2 diabetes. -He still clinically does not have pancreatitis. -Treating hypertriglyceridemia as noted above with IV insulin drip.. (6) Essential hypertension Impression: Currently controlled. -Continue home metoprolol 25 mg in the morning and 12.5 mg in the evening. -Holding home losartan given his hyponatremia and given he is not hypertensive currently. (7) Dyslipidemia Impression: He indicates that he frequently is not compliant with atorvastatin as he forgets to take it at nighttime. -Continue home atorvastatin 80 mg. -Adding Fenofibrate given triglyceridemia. (8) Sciatica Impression: Reports having recent issues with low back pain radiating into his right lower leg. This was not an issue at presentation however this morning he indicates he is having shooting pain into his right leg but denies any other neurologic symptoms. -Continue as needed medications -Obtain CT lumbar spine. Qualifiers: Laterality: right Qualified Code(s): M54.31 - Sciatica, right side (9) CAD (coronary artery disease) Impression: He has a history of a myocardial infarction that occurred in March and workup at that time revealed that he had triple-vessel disease. He underwent three- vessel CABG at [facility] in March 2021. 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 -No acute issues at this time. -Continue home aspirin 162 mg, metoprolol, atorvastatin. (10) ADITHYA on CPAP Impression: He indicates that a friend will bring his home CPAP machine to the hospital. -Can continue home CPAP at nighttime.
[2024-03-31] MEDS ORDERED: METOPROLOL TARTRATE 50 MG TABLET PO SCH (19:00)
--- NOTE | 2024-03-31 20:39 | CT Report ---
PROCEDURE: Lumbar Spine WO INDICATIONS: Low back pain with sciatica TECHNIQUE: Noncontrast 3 mm thick sections acquired from the T12 level to the sacrum. Sagittal and coronal refo rmats were constructed. For radiation dose reduction, the following was used: automated exposure co ntrol, adjustment of mA and/or kV according to patient size. COMPARISON: The LS-spine MRI 07/02/2015. CT abdomen/pelvis 12/29/2023.. FINDINGS: Image quality: Excellent. Bones: There is normal bony alignment. No acute vertebral body compression fractures. No suspiciou s lytic or blastic bony lesions. Central spinal caliber is of normal overall caliber. No pars defec ts. T11-L1: Each of these 2 levels show a moderately severe degree of degenerative disc height reduction and there is anterior endplate osteophyte formation slightly more prominent at T11-T12. No subluxati on. L1-L2: Minimal degenerative change, no significant spinal or foraminal stenosis. L2-L3: Minimal degenerative change, no significant spinal or foraminal stenosis. L3-L4: Mild facet osteoarthritis, mild osteophytic spurring but no significant spinal or foraminal stenosis is found. L4-L5: At this level there is a moderate degree of degenerative disc disease with both disc height reduction and facet osteoarthritis bilaterally with osteophytic spurring. A posterior broad-based dis c bulge/herniation extends into the left posterior lateral recess and combines with facet hyperostosi s to produce moderately severe left foraminal stenosis and mild to moderate anterior left spinal sten osis. The facet hyperostosis produces mild to moderate right-sided foraminal stenosis but without def inite nerve root impingement. Mild grade 1 retrolisthesis of L4 on L5 is present due to ligamentous l axity. L5-S1: Moderately severe degenerative disc disease and asymmetric moderately severe to severe facet osteoarthritis, left greater than right, with hyperostosis producing asymmetric left greater than ri ght significant foraminal stenosis and likelihood of significant associated L5 nerve root impingement . Soft tissues: No retroperitoneal masses or hematomas. Visualized aorta is normal in caliber. IMPRESSION: 1. No acute disease. No compression fracture found. 2. Mild degenerative disc disease without definite spinal or foraminal stenosis at the low thoracic s pine and thoracolumbar junction. 3. L4-5 degenerative changes are moderate to moderately severe and associated with broad-based transv erse left posterolateral disc bulge/protrusion impinging on the posterior lateral recess and further impinging on the left intervertebral neural foramen combining with asymmetric left greater than right facet osteoarthritis at that level. 4. Significant degenerative disc disease at L5-S1 with disc height reduction and relatively prominent facet osteoarthritic change that is greater on the left than the right, causing significant asymmetr ic left greater than right nerve root impingement involving the L5 nerve roots. Reviewed by: Venancio Ennis MD on 03/31/2024 8:38 PM PDT Approved by: Venancio Ennis MD on 03/31/2024 8:38 PM PDT Station ID: [id number]
[2024-03-31] MEDS: METOPROLOL TARTRATE 50 MG TABLET PO SCH (20:43)
[2024-03-31 20:47] LABS: PHOSPHORUS 1.7 mg/dL (2.5-5.0); POTASSIUM 3.9 mmol/L (3.5-4.5)
[2024-04-01] MEDS ORDERED: INSULIN REGULAR IN 0.9 % NS 100 UNIT/100 ML BAG IV ONE (03:07)
[2024-04-01 05:06] LABS: BASOPHILS # (AUTO) 0.1 10^3/uL (0.0-0.1); BASOPHILS % (AUTO) 1.2 %; EOSINOPHILS # (AUTO) 0.3 10^3/uL (0.0-0.7); EOSINOPHILS % (AUTO) 4.9 %; HCT - HEMATOCRIT 41.3 % (42.0-52.0); HGB - HEMOGLOBIN 14.3 g/dL (14.0-18.0); LYMPHOCYTES # (AUTO) 2.5 10^3/uL (1.5-3.5); LYMPHOCYTES % (AUTO) 36.4 %; MEAN CORPUSCULAR HEMOGLOBIN 32.1 pg (27.0-31.0); MEAN CORPUSCULAR HGB CONC 34.6 g/dL (32.0-36.0); MEAN CORPUSCULAR VOLUME 92.8 fL (80.0-94.0); MEAN PLATELET VOLUME 10.7 fL (7.4-11.4); MONOCYTES # (AUTO) 0.7 10^3/uL (0.0-1.0); MONOCYTES % (AUTO) 10.6 %; NEUTROPHILS # (AUTO) 3.1 10^3/uL (1.5-6.6); NEUTROPHILS % (AUTO) 45.1 %; PLT - PLATELET COUNT 205 10^3/uL (130-450); RED BLOOD COUNT 4.45 10^6/uL (4.70-6.10); RED CELL DISTRIBUTION WIDTH 13.2 % (12.0-15.0); WHITE BLOOD COUNT 6.8 x10^3/uL (4.8-10.8)
[2024-04-01 05:21] LABS: CALCIUM, IONIZED 1.21 mmol/L (1.15-1.33); VBG PH 7.297 (7.31-7.41)
[2024-04-01 05:29] LABS: PHOSPHORUS 2.4 mg/dL (2.5-5.0)
[2024-04-01 05:35] LABS: POTASSIUM 3.7 mmol/L (3.5-4.5)
[2024-04-01 05:36] LABS: BUN - BLOOD UREA NITROGEN 9 mg/dL (6-20); GLUCOSE 57 mg/dL (74-104)
[2024-04-01 05:37] LABS: CALCIUM 9.5 mg/dL (8.5-10.3); CARBON DIOXIDE - CO2 26 mmol/L (21-32); CHLORIDE 100 mmol/L (101-111); CREATININE 0.7 mg/dL (0.6-1.3); GFR - MDRD 118 (>89); MAGNESIUM 1.9 mg/dL (1.7-2.3); SODIUM 133 mmol/L (135-145)
[2024-04-01 05:41] LABS: TRIGLYCERIDES 2754 mg/dL
[2024-04-01 06:10] LABS: LDL CHOLESTEROL,DIRECT 75 mg/dL (75-193)
[2024-04-01] MEDS: NEUTRA-PHOS 250 MG TABLET PO SCH ×2 (06:48→20:43)
[2024-04-01] MEDS: SODIUM BICARBONATE 650 MG TABLET PO SCH (09:06)
[2024-04-01] MEDS: D5.45NS W/20 MEQ KCL 1,000 ML IV STA (09:06)
[2024-04-01] MEDS: INSULIN REGULAR HUMAN 100 UNIT in SODIUM CHLORIDE 0.9% 100ML 99 ML IV SCH (09:27)
--- NOTE | 2024-04-01 11:42 | PROVIDER PROGRESS NOTE ---
Subjective - Prog Note Date Prog Note Date: 04/01/24 Prog Note Time: 11:40 - Subjective Pt reports feeling: Improved Subjective: No acute events overnight. He reports that his low back pain is improved with sitting in the chair and he denies any significant sciatic pain at this time. He denies any chest pain, shortness of breath, cough, nausea, vomiting or diarrhea. His glucose was low this morning while on IV insulin drip but improved with drinking orange juice. His labs show improved acidosis and his triglyceride levels are finally detectable at 2750. Objective - Vital Signs/Intake & Output Reviewed Vital Signs: Yes Vital Signs: Vital Signs x48h Temp Pulse Resp BP BP Pulse Ox 04/01/24 10:54 36.9 C 75 16 153/88 H 99 04/01/24 10:00 70 17 123/74 95 04/01/24 09:00 74 18 125/71 96 04/01/24 07:49 36.7 C 73 17 137/84 H 96 04/01/24 07:00 76 20 139/104 H 97 04/01/24 06:39 150/92 H 04/01/24 06:00 78 16 150/92 H 98 04/01/24 05:00 36.8 C 68 20 143/90 H 97 04/01/24 04:00 76 16 146/86 H 96 Intake & Output: Intake & Output 03/29/24 03/30/24 03/31/24 04/01/24 23:59 23:59 23:59 23:59 Intake Total 2819.150 1237.242 0773 Output Total 1150 2200 1175 Balance 1669.150 -187.757 2049 - Objective General Appearance: positive: No acute distress, Alert, Mild distress Eyes Bilateral: positive: Normal inspection, PERRL, EOMI ENT: positive: ENT inspection nml, Pharynx nml, No signs of dehydration Neck: positive: Nml inspection, Thyroid nml, No JVD, Trachea midline Respiratory: positive: No respiratory distress, Breath sounds nml. negative: Wheezes, Rales, Rhonchi Cardiovascular: positive: Regular rate & rhythm, No gallop, Systolic murmur (Soft 2/6 systolic murmur at the right upper sternal border) Abdomen: positive: Non-tender, No organomegaly, Nml bowel sounds, No distention Back: positive: Nml inspection Skin: positive: Color nml, No rash, Warm, Dry Extremities: positive: Nml appearance, No pedal edema Neurologic/Psychiatric: positive: Oriented x3, CN's nml (2-12), Motor nml, Sensation nml - Lab Results Fish Bones: 04/01/24 04:15 04/01/24 04:15 Other Labs: Lab Results x24hrs 04/01/24 04/01/24 04/01/24 Range/Units 09:49 07:47 06:06 WBC (4.8-10.8) x10^3/uL RBC (4.70-6.10) 10^6/uL Hgb (14.0-18.0) g/dL Hct (42.0-52.0) % MCV (80.0-94.0) fL MCH (27.0-31.0) pg MCHC (32.0-36.0) g/dL RDW (12.0-15.0) % Plt Count (130-450) 10^3/uL MPV (7.4-11.4) fL Neut # (Auto) (1.5-6.6) 10^3/uL Lymph # (Auto) (1.5-3.5) 10^3/uL Craig # (Auto) (0.0-1.0) 10^3/uL Eos # (Auto) (0.0-0.7) 10^3/uL Baso # (Auto) (0.0-0.1) 10^3/uL Absolute Nucleated RBC x10^3/uL Nucleated RBC % /100WBC VBG pH (7.31-7.41) Ionized Calcium (1.15-1.33) mmol/L Sodium (135-145) mmol/L Potassium (3.5-4.5) mmol/L Chloride (101-111) mmol/L Carbon Dioxide (21-32) mmol/L Anion Gap (6-13) BUN (6-20) mg/dL Creatinine (0.6-1.3) mg/dL Estimated GFR (MDRD) (>89) Glucose (74-104) mg/dL POC Whole Bld Glucose 254 H 169 H 181 H (70 - 100) mg/dL Calcium (8.5-10.3) mg/dL Phosphorus (2.5-5.0) mg/dL Magnesium (1.7-2.3) mg/dL Triglycerides mg/dL LDL Cholesterol Direct (75-193) mg/dL dLDL/HDL Ratio 04/01/24 04/01/24 04/01/24 Range/Units 04:48 04:17 04:15 WBC (4.8-10.8) x10^3/uL RBC (4.70-6.10) 10^6/uL Hgb (14.0-18.0) g/dL Hct (42.0-52.0) % MCV (80.0-94.0) fL MCH (27.0-31.0) pg MCHC (32.0-36.0) g/dL RDW (12.0-15.0) % Plt Count (130-450) 10^3/uL MPV (7.4-11.4) fL Neut # (Auto) (1.5-6.6) 10^3/uL Lymph # (Auto) (1.5-3.5) 10^3/uL Craig # (Auto) (0.0-1.0) 10^3/uL Eos # (Auto) (0.0-0.7) 10^3/uL Baso # (Auto) (0.0-0.1) 10^3/uL Absolute Nucleated RBC x10^3/uL Nucleated RBC % /100WBC VBG pH 7.297 L (7.31-7.41) Ionized Calcium 1.21 (1.15-1.33) mmol/L Sodium (135-145) mmol/L Potassium (3.5-4.5) mmol/L Chloride (101-111) mmol/L Carbon Dioxide (21-32) mmol/L Anion Gap (6-13) BUN (6-20) mg/dL Creatinine (0.6-1.3) mg/dL Estimated GFR (MDRD) (>89) Glucose (74-104) mg/dL POC Whole Bld Glucose 162 H 76 (70 - 100) mg/dL Calcium (8.5-10.3) mg/dL Phosphorus (2.5-5.0) mg/dL Magnesium (1.7-2.3) mg/dL Triglycerides mg/dL LDL Cholesterol Direct (75-193) mg/dL dLDL/HDL Ratio 04/01/24 04/01/24 04/01/24 Range/Units 04:15 04:15 04:01 WBC 6.8 (4.8-10.8) x10^3/uL RBC 4.45 L (4.70-6.10) 10^6/uL Hgb 14.3 (14.0-18.0) g/dL Hct 41.3 L (42.0-52.0) % MCV 92.8 (80.0-94.0) fL MCH 32.1 H (27.0-31.0) pg MCHC 34.6 (32.0-36.0) g/dL RDW 13.2 (12.0-15.0) % Plt Count 205 (130-450) 10^3/uL MPV 10.7 (7.4-11.4) fL Neut # (Auto) 3.1 (1.5-6.6) 10^3/uL Lymph # (Auto) 2.5 (1.5-3.5) 10^3/uL Craig # (Auto) 0.7 (0.0-1.0) 10^3/uL Eos # (Auto) 0.3 (0.0-0.7) 10^3/uL Baso # (Auto) 0.1 (0.0-0.1) 10^3/uL Absolute Nucleated RBC 0.00 x10^3/uL Nucleated RBC % 0.0 /100WBC VBG pH (7.31-7.41) Ionized Calcium (1.15-1.33) mmol/L Sodium 133 L (135-145) mmol/L Potassium 3.7 (3.5-4.5) mmol/L Chloride 100 L (101-111) mmol/L Carbon Dioxide 26 (21-32) mmol/L Anion Gap 7.0 (6-13) BUN 9 (6-20) mg/dL Creatinine 0.7 (0.6-1.3) mg/dL Estimated GFR (MDRD) 118 (>89) Glucose 57 L* (74-104) mg/dL POC Whole Bld Glucose 76 (70 - 100) mg/dL Calcium 9.5 (8.5-10.3) mg/dL Phosphorus 2.4 L (2.5-5.0) mg/dL Magnesium 1.9 (1.7-2.3) mg/dL Triglycerides 2754 mg/dL LDL Cholesterol Direct 75 (75-193) mg/dL dLDL/HDL Ratio TNP 04/01/24 03/31/24 03/31/24 Range/Units 00:11 22:02 20:29 WBC (4.8-10.8) x10^3/uL RBC (4.70-6.10) 10^6/uL Hgb (14.0-18.0) g/dL Hct (42.0-52.0) % MCV (80.0-94.0) fL MCH (27.0-31.0) pg MCHC (32.0-36.0) g/dL RDW (12.0-15.0) % Plt Count (130-450) 10^3/uL MPV (7.4-11.4) fL Neut # (Auto) (1.5-6.6) 10^3/uL Lymph # (Auto) (1.5-3.5) 10^3/uL Craig # (Auto) (0.0-1.0) 10^3/uL Eos # (Auto) (0.0-0.7) 10^3/uL Baso # (Auto) (0.0-0.1) 10^3/uL Absolute Nucleated RBC x10^3/uL Nucleated RBC % /100WBC VBG pH (7.31-7.41) Ionized Calcium (1.15-1.33) mmol/L Sodium (135-145) mmol/L Potassium 3.9 (3.5-4.5) mmol/L Chloride (101-111) mmol/L Carbon Dioxide (21-32) mmol/L Anion Gap (6-13) BUN (6-20) mg/dL Creatinine (0.6-1.3) mg/dL Estimated GFR (MDRD) (>89) Glucose (74-104) mg/dL POC Whole Bld Glucose 158 H 227 H (70 - 100) mg/dL Calcium (8.5-10.3) mg/dL Phosphorus 1.7 L (2.5-5.0) mg/dL Magnesium (1.7-2.3) mg/dL Triglycerides mg/dL LDL Cholesterol Direct (75-193) mg/dL dLDL/HDL Ratio 03/31/24 03/31/24 03/31/24 Range/Units 19:59 18:08 16:09 WBC (4.8-10.8) x10^3/uL RBC (4.70-6.10) 10^6/uL Hgb (14.0-18.0) g/dL Hct (42.0-52.0) % MCV (80.0-94.0) fL MCH (27.0-31.0) pg MCHC (32.0-36.0) g/dL RDW (12.0-15.0) % Plt Count (130-450) 10^3/uL MPV (7.4-11.4) fL Neut # (Auto) (1.5-6.6) 10^3/uL Lymph # (Auto) (1.5-3.5) 10^3/uL Craig # (Auto) (0.0-1.0) 10^3/uL Eos # (Auto) (0.0-0.7) 10^3/uL Baso # (Auto) (0.0-0.1) 10^3/uL Absolute Nucleated RBC x10^3/uL Nucleated RBC % /100WBC VBG pH (7.31-7.41) Ionized Calcium (1.15-1.33) mmol/L Sodium (135-145) mmol/L Potassium (3.5-4.5) mmol/L Chloride (101-111) mmol/L Carbon Dioxide (21-32) mmol/L Anion Gap (6-13) BUN (6-20) mg/dL Creatinine (0.6-1.3) mg/dL Estimated GFR (MDRD) (>89) Glucose (74-104) mg/dL POC Whole Bld Glucose 148 H 213 H 141 H (70 - 100) mg/dL Calcium (8.5-10.3) mg/dL Phosphorus (2.5-5.0) mg/dL Magnesium (1.7-2.3) mg/dL Triglycerides mg/dL LDL Cholesterol Direct (75-193) mg/dL dLDL/HDL Ratio 03/31/24 03/31/24 03/31/24 Range/Units 14:31 12:00 11:36 WBC (4.8-10.8) x10^3/uL RBC (4.70-6.10) 10^6/uL Hgb (14.0-18.0) g/dL Hct (42.0-52.0) % MCV (80.0-94.0) fL MCH (27.0-31.0) pg MCHC (32.0-36.0) g/dL RDW (12.0-15.0) % Plt Count (130-450) 10^3/uL MPV (7.4-11.4) fL Neut # (Auto) (1.5-6.6) 10^3/uL Lymph # (Auto) (1.5-3.5) 10^3/uL Craig # (Auto) (0.0-1.0) 10^3/uL Eos # (Auto) (0.0-0.7) 10^3/uL Baso # (Auto) (0.0-0.1) 10^3/uL Absolute Nucleated RBC x10^3/uL Nucleated RBC % /100WBC VBG pH 7.261 L (7.31-7.41) Ionized Calcium 1.21 (1.15-1.33) mmol/L Sodium (135-145) mmol/L Potassium (3.5-4.5) mmol/L Chloride (101-111) mmol/L Carbon Dioxide (21-32) mmol/L Anion Gap (6-13) BUN (6-20) mg/dL Creatinine (0.6-1.3) mg/dL Estimated GFR (MDRD) (>89) Glucose (74-104) mg/dL POC Whole Bld Glucose 118 H 181 H (70 - 100) mg/dL Calcium (8.5-10.3) mg/dL Phosphorus (2.5-5.0) mg/dL Magnesium (1.7-2.3) mg/dL Triglycerides mg/dL LDL Cholesterol Direct (75-193) mg/dL dLDL/HDL Ratio 03/31/24 Range/Units 11:36 WBC (4.8-10.8) x10^3/uL RBC (4.70-6.10) 10^6/uL Hgb (14.0-18.0) g/dL Hct (42.0-52.0) % MCV (80.0-94.0) fL MCH (27.0-31.0) pg MCHC (32.0-36.0) g/dL RDW (12.0-15.0) % Plt Count (130-450) 10^3/uL MPV (7.4-11.4) fL Neut # (Auto) (1.5-6.6) 10^3/uL Lymph # (Auto) (1.5-3.5) 10^3/uL Craig # (Auto) (0.0-1.0) 10^3/uL Eos # (Auto) (0.0-0.7) 10^3/uL Baso # (Auto) (0.0-0.1) 10^3/uL Absolute Nucleated RBC x10^3/uL Nucleated RBC % /100WBC VBG pH (7.31-7.41) Ionized Calcium (1.15-1.33) mmol/L Sodium (135-145) mmol/L Potassium 3.8 (3.5-4.5) mmol/L Chloride (101-111) mmol/L Carbon Dioxide (21-32) mmol/L Anion Gap (6-13) BUN (6-20) mg/dL Creatinine (0.6-1.3) mg/dL Estimated GFR (MDRD) (>89) Glucose (74-104) mg/dL POC Whole Bld Glucose (70 - 100) mg/dL Calcium (8.5-10.3) mg/dL Phosphorus 1.5 L (2.5-5.0) mg/dL Magnesium 2.1 (1.7-2.3) mg/dL Triglycerides mg/dL LDL Cholesterol Direct (75-193) mg/dL dLDL/HDL Ratio - Diagnostic Imaging Diagnostic Imaging Results: positive: Final report reviewed Diagnostic Imaging Comments: Lumbar Spine CT: 1. No acute disease. No compression fracture found. 2. Mild degenerative disc disease without definite spinal or foraminal stenosis at the lower thoracic spine or thoracolumbar junction. 3. L4-5 degenerative changes are moderate to moderately severe and associated with broad-based transverse left posterior lateral disc bulge/protrusion impinging on the posterior lateral recess and further impinging on the left intervertebral neural foramen combining with asymmetric left greater than right facet osteoarthritis at that level. 4. Significant degenerative disc disease at L5-S1 with disc height reduction and relatively prominent facet osteoarthritic changes that is greater on the left than the right, causing significant asymmetric left greater than right nerve root impingement involving the L5 nerve roots. Sepsis Event Note (H) - Evaluation Current Stage of Sepsis: Ruled out Assessment/Plan - Problem List (1) Hyponatremia Impression: His hyponatremia is most likely from excessive free water intake as he has been drinking 2 to 3 gallons of liquid per day, split between water, milk and fruit juices. He has been intentionally drinking that level as he was trying to prevent a repeat kidney stone, as he had several kidney stones approximately 1 month ago. He probably also has a component of pseudohyponatremia due to significant hypertriglyceridemia. -Continue fluid restriction at 1500 mL/day, can likely remove this tomorrow. -TSH normal, cortisol normal. -Triglyceride level > 3000 on presentation, likely creating a component of pseudohyponatremia. -Sodium level has been improving appropriately, almost normal. (2) Uncontrolled type 2 diabetes mellitus with hyperglycemia Impression: Initially felt to have DKA given his acidosis, but it is now more likely that he has an RTA causing his acidosis as he did not improved with IV insulin drip and did not have an anion gap. -A1c is 17.0%. Will need insulin therapy at the time of discharge. -Will be continuing IV insulin drip for his hypertriglyceridemia as noted below; no longer on DKA protocol but will need to remain on IV insulin until triglycerides < 1000. -Hopeful to transition to Lantus + short acting insulin tomorrow if triglyceride level is more appropriate. (3) Hypertriglyceridemia Impression: He has significant hypertriglyceridemia with his admission triglyceride level greater than 3000, with our laboratory machines unable to determine the exact level. -Repeat triglyceride level yesterday despite being on IV insulin drip for 24 hours was still greater than 3000. -Triglyceride level now improved to 2750. -Continue IV insulin drip at 0.1 unit/kg/hr. -Repeat daily triglyceride level. -As he does not have acute pancreatitis, we do not have to get it strictly down to less than 500 prior to transitioning off insulin drip. Goal is to get the triglycerides closer to 1000 or less prior to coming off IV insulin drip. -In addition to his home atorvastatin 80 mg, we added fenofibrate. (4) Metabolic acidosis Impression: Initially felt that he had a component of DKA at presentation, however since he did not improved with IV insulin drip and he did not have an anion gap, I am concerned that he may have an underlying RTA secondary to uncontrolled diabetes. -Acidosis resolved with IV bicarb drip. -Will transition off IV bicarb and start oral bicarb today. Unclear if he will need this at discharge or not. (5) Essential hypertension Impression: Currently controlled. -Continue home metoprolol 25 mg in the morning and 12.5 mg in the evening. -Holding home losartan given his hyponatremia and given he is not hypertensive currently. (6) Dyslipidemia Impression: He indicates that he frequently is not compliant with atorvastatin as he forgets to take it at nighttime. -Continue home atorvastatin 80 mg. -Added Fenofibrate given significant triglyceridemia. (7) Elevated lipase Impression: He clinically has no signs or symptoms of pancreatitis, thus will not diagnose him with this. His abdominal exam is benign. The elevated lipase level is likely secondary to hypertriglyceridemia, stress and type 2 diabetes. -He still clinically does not have pancreatitis. -Treating hypertriglyceridemia as noted above with IV insulin drip. (8) Sciatica Impression: Reports having recent issues with low back pain radiating into his right lower leg. This was not an issue at presentation however the day after admission he indicated having shooting pain into his right leg but denies any other neurologic symptoms (no weakness, saddle anesthesia, urine/fecal incont inence/hesitancy). -Continue as needed pain medications. -CT lumbar spine with significant degenerative changes at L4-5 with disc bulge causing impingement of intervertebral neural foramen (L>R). Also has L5-S1 degenerative changes causing L5 nerve root impingement. -Today he does not have sciatica or other neurologic complaints, though still with back pain. Management will remain PRN pain medications and ambulation. Can have outpatient follow up. No indication for emergent intervention. Qualifiers: Laterality: right Qualified Code(s): M54.31 - Sciatica, right side (9) CAD (coronary artery disease) Impression: He has a history of a myocardial infarction that occurred in March and workup at that time revealed that he had triple-vessel disease. He underwent three- vessel CABG at [facility] in March 2021. He did well following this however in 2021 he did have chest pain and his housing relocation found that one of his bypass vessels was blocked, thus he has a stent in one of the bypass vessels. -No acute issues at this time. -Continue home aspirin 162 mg, metoprolol, atorvastatin. (10) ADITHYA on CPAP Impression: He indicates that a friend will bring his home CPAP machine to the hospital. -Can continue home CPAP at nighttime.
[2024-04-01] MEDS ORDERED: LIDOCAINE PATCH 4% TOP PRN (14:53)
[2024-04-01 18:44] LABS: PHOSPHORUS 2.1 mg/dL (2.5-5.0)
[2024-04-01 18:45] LABS: CALCIUM 9.2 mg/dL (8.5-10.3); CREATININE 0.8 mg/dL (0.6-1.3); MAGNESIUM 1.7 mg/dL (1.7-2.3); POTASSIUM 3.6 mmol/L (3.5-4.5)
[2024-04-01] MEDS: D5.45NS W/20 MEQ KCL 1,000 ML IV SCH (19:50)
[2024-04-01] MEDS: POTASSIUM CHLORIDE 20 MEQ TABLET PO ONE (20:43)
[2024-04-01] MEDS: MAGNESIUM OXIDE 400 MG TABLET PO ONE (20:43)
[2024-04-02 04:51] LABS: BASOPHILS # (AUTO) 0.1 10^3/uL (0.0-0.1); BASOPHILS % (AUTO) 1.3 %; EOSINOPHILS # (AUTO) 0.3 10^3/uL (0.0-0.7); EOSINOPHILS % (AUTO) 5.8 %; HCT - HEMATOCRIT 37.5 % (42.0-52.0); HGB - HEMOGLOBIN 12.6 g/dL (14.0-18.0); LYMPHOCYTES % (AUTO) 35.9 %; MEAN CORPUSCULAR HEMOGLOBIN 31.3 pg (27.0-31.0); MEAN CORPUSCULAR HGB CONC 33.6 g/dL (32.0-36.0); MEAN CORPUSCULAR VOLUME 93.3 fL (80.0-94.0); MEAN PLATELET VOLUME 10.8 fL (7.4-11.4); MONOCYTES # (AUTO) 0.7 10^3/uL (0.0-1.0); MONOCYTES % (AUTO) 12.4 %; NEUTROPHILS # (AUTO) 2.4 10^3/uL (1.5-6.6); NEUTROPHILS % (AUTO) 43.1 %; PLT - PLATELET COUNT 177 10^3/uL (130-450); RED BLOOD COUNT 4.02 10^6/uL (4.70-6.10); RED CELL DISTRIBUTION WIDTH 13.4 % (12.0-15.0); WHITE BLOOD COUNT 5.5 x10^3/uL (4.8-10.8)
[2024-04-02 05:26] LABS: TRIGLYCERIDES 1446 mg/dL
[2024-04-02 05:27] LABS: BUN - BLOOD UREA NITROGEN 8 mg/dL (6-20); CALCIUM 8.9 mg/dL (8.5-10.3); CARBON DIOXIDE - CO2 30 mmol/L (21-32); CHLORIDE 103 mmol/L (101-111); CREATININE 0.8 mg/dL (0.6-1.3); GFR - MDRD 102 (>89); GLUCOSE 75 mg/dL (74-104); POTASSIUM 3.3 mmol/L (3.5-4.5); SODIUM 138 mmol/L (135-145)
[2024-04-02 05:45] LABS: LDL CHOLESTEROL,DIRECT 82 mg/dL (75-193)
[2024-04-02 07:52] LABS: MAGNESIUM 1.8 mg/dL (1.7-2.3)
[2024-04-02] MEDS: POTASSIUM CHLORIDE 20 MEQ TABLET PO SCH (07:57)
[2024-04-02] MEDS: INSULIN GLARGINE-YFGN 300 UNIT/3 ML PEN SUBQ SCH (08:45)
[2024-04-02] MEDS: INSULIN LISPRO 300 UNIT/3 ML PEN SUBQ SCH ×2 (12:29→12:30)
--- NOTE | 2024-04-02 18:10 | PROVIDER PROGRESS NOTE ---
Subjective - Prog Note Date Prog Note Date: 04/02/24 Prog Note Time: 18:05 - Subjective Pt reports feeling: Improved Subjective: No acute events overnight. He reports that his back pain is fairly well- controlled with pain medication as long as he is sitting in the chair rather than the hospital bed. Denies any sciatic pain or other red flag symptoms. Denies any chest pain, dyspnea, nausea, vomiting, diarrhea. Triglyceride level today has improved to 1400. He overall feels improved compared to admission. Objective - Vital Signs/Intake & Output Reviewed Vital Signs: Yes Vital Signs: Vital Signs x48h Temp Pulse Resp BP Pulse Ox 04/02/24 16:00 36.4 C L 71 15 141/85 H 97 04/02/24 15:00 64 13 147/80 H 96 04/02/24 14:00 64 15 124/70 96 04/02/24 13:00 36.7 C 73 17 142/91 H 96 04/02/24 12:00 79 17 145/97 H 97 04/02/24 11:30 113 H 12 120/94 H 95 04/02/24 11:00 68 13 129/83 H 96 Intake & Output: Intake & Output 03/30/24 03/31/24 04/01/24 04/02/24 23:59 23:59 23:59 23:59 Intake Total 2819.150 3987.704 7131 3135 Output Total 1150 2200 3250 2875 Balance 1669.150 -684.082 -345 260 - Objective General Appearance: positive: No acute distress, Alert Eyes Bilateral: positive: Normal inspection, PERRL, EOMI ENT: positive: ENT inspection nml, Pharynx nml, No signs of dehydration Neck: positive: Nml inspection, Thyroid nml, No JVD, Trachea midline Respiratory: positive: No respiratory distress, Breath sounds nml, Wheezes, Rales, Rhonchi Cardiovascular: positive: Regular rate & rhythm, No murmur, No gallop Abdomen: positive: Non-tender, No organomegaly, Nml bowel sounds, No distention Back: positive: Nml inspection Skin: positive: Color nml, No rash, Warm, Dry Extremities: positive: Nml appearance, No pedal edema Neurologic/Psychiatric: positive: Oriented x3, CN's nml (2-12), Motor nml, Sensation nml - Lab Results Fish Bones: 04/02/24 04:06 04/02/24 04:06 Other Labs: Lab Results x24hrs 04/02/24 04/02/24 04/02/24 Range/Units 16:49 11:24 10:02 WBC (4.8-10.8) x10^3/uL RBC (4.70-6.10) 10^6/uL Hgb (14.0-18.0) g/dL Hct (42.0-52.0) % MCV (80.0-94.0) fL MCH (27.0-31.0) pg MCHC (32.0-36.0) g/dL RDW (12.0-15.0) % Plt Count (130-450) 10^3/uL MPV (7.4-11.4) fL Neut # (Auto) (1.5-6.6) 10^3/uL Lymph # (Auto) (1.5-3.5) 10^3/uL [place] # (Auto) (0.0-1.0) 10^3/uL Eos # (Auto) (0.0-0.7) 10^3/uL Baso # (Auto) (0.0-0.1) 10^3/uL Absolute Nucleated RBC x10^3/uL Nucleated RBC % /100WBC Sodium (135-145) mmol/L Potassium (3.5-4.5) mmol/L Chloride (101-111) mmol/L Carbon Dioxide (21-32) mmol/L Anion Gap (6-13) BUN (6-20) mg/dL Creatinine (0.6-1.3) mg/dL Estimated GFR (MDRD) (>89) Glucose (74-104) mg/dL POC Whole Bld Glucose 198 H 150 H 159 H (70 - 100) mg/dL Calcium (8.5-10.3) mg/dL Phosphorus (2.5-5.0) mg/dL Magnesium (1.7-2.3) mg/dL Triglycerides mg/dL LDL Cholesterol Direct (75-193) mg/dL dLDL/HDL Ratio 04/02/24 04/02/24 04/02/24 Range/Units 07:51 05:55 04:08 WBC (4.8-10.8) x10^3/uL RBC (4.70-6.10) 10^6/uL Hgb (14.0-18.0) g/dL Hct (42.0-52.0) % MCV (80.0-94.0) fL MCH (27.0-31.0) pg MCHC (32.0-36.0) g/dL RDW (12.0-15.0) % Plt Count (130-450) 10^3/uL MPV (7.4-11.4) fL Neut # (Auto) (1.5-6.6) 10^3/uL Lymph # (Auto) (1.5-3.5) 10^3/uL [place] # (Auto) (0.0-1.0) 10^3/uL Eos # (Auto) (0.0-0.7) 10^3/uL Baso # (Auto) (0.0-0.1) 10^3/uL Absolute Nucleated RBC x10^3/uL Nucleated RBC % /100WBC Sodium (135-145) mmol/L Potassium (3.5-4.5) mmol/L Chloride (101-111) mmol/L Carbon Dioxide (21-32) mmol/L Anion Gap (6-13) BUN (6-20) mg/dL Creatinine (0.6-1.3) mg/dL Estimated GFR (MDRD) (>89) Glucose (74-104) mg/dL POC Whole Bld Glucose 108 H 94 100 (70 - 100) mg/dL Calcium (8.5-10.3) mg/dL Phosphorus (2.5-5.0) mg/dL Magnesium (1.7-2.3) mg/dL Triglycerides mg/dL LDL Cholesterol Direct (75-193) mg/dL dLDL/HDL Ratio 04/02/24 04/02/24 04/02/24 Range/Units 04:06 04:06 04:06 WBC 5.5 (4.8-10.8) x10^3/uL RBC 4.02 L (4.70-6.10) 10^6/uL Hgb 12.6 L (14.0-18.0) g/dL Hct 37.5 L (42.0-52.0) % MCV 93.3 (80.0-94.0) fL MCH 31.3 H (27.0-31.0) pg MCHC 33.6 (32.0-36.0) g/dL RDW 13.4 (12.0-15.0) % Plt Count 177 (130-450) 10^3/uL MPV 10.8 (7.4-11.4) fL Neut # (Auto) 2.4 (1.5-6.6) 10^3/uL Lymph # (Auto) 2.0 (1.5-3.5) 10^3/uL [place] # (Auto) 0.7 (0.0-1.0) 10^3/uL Eos # (Auto) 0.3 (0.0-0.7) 10^3/uL Baso # (Auto) 0.1 (0.0-0.1) 10^3/uL Absolute Nucleated RBC 0.00 x10^3/uL Nucleated RBC % 0.0 /100WBC Sodium 138 (135-145) mmol/L Potassium 3.3 L (3.5-4.5) mmol/L Chloride 103 (101-111) mmol/L Carbon Dioxide 30 (21-32) mmol/L Anion Gap 5.0 L (6-13) BUN 8 (6-20) mg/dL Creatinine 0.8 (0.6-1.3) mg/dL Estimated GFR (MDRD) 102 (>89) Glucose 75 (74-104) mg/dL POC Whole Bld Glucose (70 - 100) mg/dL Calcium 8.9 (8.5-10.3) mg/dL Phosphorus 3.0 (2.5-5.0) mg/dL Magnesium 1.8 (1.7-2.3) mg/dL Triglycerides 1446 mg/dL LDL Cholesterol Direct 82 (75-193) mg/dL dLDL/HDL Ratio TNP 04/02/24 04/02/24 04/01/24 Range/Units 02:02 00:10 22:28 WBC (4.8-10.8) x10^3/uL RBC (4.70-6.10) 10^6/uL Hgb (14.0-18.0) g/dL Hct (42.0-52.0) % MCV (80.0-94.0) fL MCH (27.0-31.0) pg MCHC (32.0-36.0) g/dL RDW (12.0-15.0) % Plt Count (130-450) 10^3/uL MPV (7.4-11.4) fL Neut # (Auto) (1.5-6.6) 10^3/uL Lymph # (Auto) (1.5-3.5) 10^3/uL [place] # (Auto) (0.0-1.0) 10^3/uL Eos # (Auto) (0.0-0.7) 10^3/uL Baso # (Auto) (0.0-0.1) 10^3/uL Absolute Nucleated RBC x10^3/uL Nucleated RBC % /100WBC Sodium (135-145) mmol/L Potassium (3.5-4.5) mmol/L Chloride (101-111) mmol/L Carbon Dioxide (21-32) mmol/L Anion Gap (6-13) BUN (6-20) mg/dL Creatinine (0.6-1.3) mg/dL Estimated GFR (MDRD) (>89) Glucose (74-104) mg/dL POC Whole Bld Glucose 112 H 152 H 149 H (70 - 100) mg/dL Calcium (8.5-10.3) mg/dL Phosphorus (2.5-5.0) mg/dL Magnesium (1.7-2.3) mg/dL Triglycerides mg/dL LDL Cholesterol Direct (75-193) mg/dL dLDL/HDL Ratio 04/01/24 04/01/24 Range/Units 19:52 18:22 WBC (4.8-10.8) x10^3/uL RBC (4.70-6.10) 10^6/uL Hgb (14.0-18.0) g/dL Hct (42.0-52.0) % MCV (80.0-94.0) fL MCH (27.0-31.0) pg MCHC (32.0-36.0) g/dL RDW (12.0-15.0) % Plt Count (130-450) 10^3/uL MPV (7.4-11.4) fL Neut # (Auto) (1.5-6.6) 10^3/uL Lymph # (Auto) (1.5-3.5) 10^3/uL [place] # (Auto) (0.0-1.0) 10^3/uL Eos # (Auto) (0.0-0.7) 10^3/uL Baso # (Auto) (0.0-0.1) 10^3/uL Absolute Nucleated RBC x10^3/uL Nucleated RBC % /100WBC Sodium 135 (135-145) mmol/L Potassium 3.6 (3.5-4.5) mmol/L Chloride 100 L (101-111) mmol/L Carbon Dioxide 27 (21-32) mmol/L Anion Gap 8.0 (6-13) BUN 7 (6-20) mg/dL Creatinine 0.8 (0.6-1.3) mg/dL Estimated GFR (MDRD) 102 (>89) Glucose 131 H (74-104) mg/dL POC Whole Bld Glucose 166 H (70 - 100) mg/dL Calcium 9.2 (8.5-10.3) mg/dL Phosphorus 2.1 L (2.5-5.0) mg/dL Magnesium 1.7 (1.7-2.3) mg/dL Triglycerides mg/dL LDL Cholesterol Direct (75-193) mg/dL dLDL/HDL Ratio - Diagnostic Imaging Diagnostic Imaging Results: positive: Final report reviewed Diagnostic Imaging Comments: Lumbar Spine CT: 1. No acute disease. No compression fracture found. 2. Mild degenerative disc disease without definite spinal or foraminal stenosis at the lower thoracic spine or thoracolumbar junction. 3. L4-5 degenerative changes are moderate to moderately severe and associated with broad-based transverse left posterior lateral disc bulge/protrusion impinging on the posterior lateral recess and further impinging on the left intervertebral neural foramen combining with asymmetric left greater than right facet osteoarthritis at that level. 4. Significant degenerative disc disease at L5-S1 with disc height reduction a nd relatively prominent facet osteoarthritic changes that is greater on the left than the right, causing significant asymmetric left greater than right nerve root impingement involving the L5 nerve roots. Sepsis Event Note (H) - Evaluation Current Stage of Sepsis: Ruled out Assessment/Plan - Problem List (1) Hyponatremia Impression: His hyponatremia is most likely from excessive free water intake as he has been drinking 2 to 3 gallons of liquid per day, split between water, milk and fruit juices. He has been intentionally drinking that level as he was trying to prevent a repeat kidney stone, as he had several kidney stones approximately 1 month ago. He probably also has a component of pseudohyponatremia due to significant hypertriglyceridemia. -Discontinue fluid restriction. -TSH normal, cortisol normal. -Triglyceride level > 3000 on presentation, likely creating a component of pseudohyponatremia. -Hyponatremia resolved. (2) Uncontrolled type 2 diabetes mellitus with hyperglycemia Impression: Initially felt to have DKA given his acidosis, but it is now more likely that he has an RTA causing his acidosis as he did not improved with IV insulin drip and did not have an anion gap. -A1c is 17.0%. Will need insulin therapy at the time of discharge. -Will transition off IV insulin drip at this time with 30 units of Lantus along with Premeal and sliding scale insulin.. -Dietitian consult. -He is new to insulin and will need appropriate training prior to discharge. -If his glucose remains well-controlled today in to tomorrow, can consider discharge tomorrow afternoon.. (3) Hypertriglyceridemia Impression: He has significant hypertriglyceridemia with his admission triglyceride level greater than 3000, with our laboratory machines unable to determine the exact level. -Took 2 days of IV insulin drip to get his triglyceride level less than 3000 and today his triglyceride level is 1400. -Given the rapid improvement in his triglyceride level over the past 24 hours along with the fact that he did not have endorgan damage from hypertriglyceridemia (ie pancreatitis), can transition off IV insulin drip today as noted above. -Repeat daily triglyceride level. -In addition to his home atorvastatin 80 mg, we added fenofibrate. (4) Metabolic acidosis Impression: Initially felt that he had a component of DKA at presentation, however since he did not improved with IV insulin drip and he did not have an anion gap, I am concerned that he may have an underlying RTA secondary to uncontrolled diabetes. -Acidosis resolved with IV bicarb drip. -Continue oral sodium bicarb 650 mg daily. May not require this at discharge depending on labs. (5) Essential hypertension Impression: Currently controlled. -Continue home metoprolol 25 mg in the morning and 12.5 mg in the evening. -Holding home losartan given his hyponatremia and given he is not hypertensive currently. (6) Dyslipidemia Impression: He indicates that he frequently is not compliant with atorvastatin as he forgets to take it at nighttime. -Continue home atorvastatin 80 mg. -Added Fenofibrate given significant triglyceridemia. (7) Elevated lipase Impression: He clinically has no signs or symptoms of pancreatitis, thus will not diagnose him with this. His abdominal exam is benign. The elevated lipase level is likely secondary to hypertriglyceridemia, stress and type 2 diabetes. -He still clinically does not have pancreatitis. -Treating hypertriglyceridemia as noted above. (8) Sciatica Impression: Reports having recent issues with low back pain radiating into his right lower leg. This was not an issue at presentation however the day after admission he indicated having shooting pain into his right leg but denies any other neurologic symptoms (no weakness, saddle anesthesia, urine/fecal incontinence/hesitancy). -Continue as needed pain medications. -CT lumbar spine with significant degenerative changes at L4-5 with disc bulge causing impingement of intervertebral neural foramen (L>R). Also has L5-S1 degenerative changes causing L5 nerve root impingement. -Today he does not have sciatica or other neurologic complaints, though still with back pain. Management will remain PRN pain medications and ambulation. Can have outpatient follow up. No indication for emergent intervention. Qualifiers: Laterality: right Qualified Code(s): M54.31 - Sciatica, right side (9) CAD (coronary artery disease) Impression: He has a history of a myocardial infarction that occurred in March and workup at that time revealed that he had triple-vessel disease. He underwent three- vessel CABG at [facility] in March 2021. He did well following this however in 2021 he did have chest pain and his sports equipment supervisor found that one of his bypass vessels was blocked, thus he has a stent in one of the bypass vessels. -No acute issues at this time. -Continue home aspirin 162 mg, metoprolol, atorvastatin. (10) ADITHYA on CPAP Impression: He indicates that a friend will bring his home CPAP machine to the hospital. -Can continue home CPAP at nighttime.
[2024-04-02] MEDS: METOPROLOL TARTRATE 25 MG TABLET PO SCH (20:48)
[2024-04-03 00:31] VITALS: O2SAT 98
[2024-04-03 05:23] LABS: BASOPHILS # (AUTO) 0.1 10^3/uL (0.0-0.1); EOSINOPHILS # (AUTO) 0.3 10^3/uL (0.0-0.7); EOSINOPHILS % (AUTO) 5.3 %; HCT - HEMATOCRIT 38.8 % (42.0-52.0); HGB - HEMOGLOBIN 13.2 g/dL (14.0-18.0); LYMPHOCYTES # (AUTO) 1.9 10^3/uL (1.5-3.5); LYMPHOCYTES % (AUTO) 38.4 %; MEAN CORPUSCULAR HEMOGLOBIN 32.1 pg (27.0-31.0); MEAN CORPUSCULAR VOLUME 94.4 fL (80.0-94.0); MEAN PLATELET VOLUME 10.5 fL (7.4-11.4); MONOCYTES # (AUTO) 0.6 10^3/uL (0.0-1.0); MONOCYTES % (AUTO) 11.6 %; NEUTROPHILS # (AUTO) 2.1 10^3/uL (1.5-6.6); NEUTROPHILS % (AUTO) 42.9 %; PLT - PLATELET COUNT 182 10^3/uL (130-450); RED BLOOD COUNT 4.11 10^6/uL (4.70-6.10); RED CELL DISTRIBUTION WIDTH 13.7 % (12.0-15.0); WHITE BLOOD COUNT 4.9 x10^3/uL (4.8-10.8)
[2024-04-03 05:41] LABS: BUN - BLOOD UREA NITROGEN 10 mg/dL (6-20); CARBON DIOXIDE - CO2 31 mmol/L (21-32); CHLORIDE 102 mmol/L (101-111); CREATININE 0.8 mg/dL (0.6-1.3); GFR - MDRD 102 (>89); GLUCOSE 205 mg/dL (74-104); MAGNESIUM 1.7 mg/dL (1.7-2.3); POTASSIUM 4.1 mmol/L (3.5-4.5); SODIUM 137 mmol/L (135-145)
[2024-04-03 05:53] LABS: TRIGLYCERIDES 1104 mg/dL
[2024-04-03] MEDS: METOPROLOL TARTRATE 25 MG TABLET PO SCH (06:21)
[2024-04-03] MEDS: ASPIRIN EC 81 MG TABLET PO SCH (06:23)
[2024-04-03 06:41] LABS: LDL CHOLESTEROL,DIRECT 109 mg/dL (75-193)
[2024-04-03 08:33] VITALS: BP 141/89
--- NOTE | 2024-04-03 08:49 | Discharge Plan ---
Discharge Plan Problem Reviewed?: Yes Disposition: Home, Self Care Condition: Stable Prescriptions: Insulin Lispro [Humalog Kwikpen U-100] 10 unit SUBQ TIDWM #1 packet Insulin Glargine [Lantus Solostar] 30 unit SUBQ DAILY #1 packet Fenofibrate [Tricor] 144 mg PO DAILY #30 tab Diet: Diabetic Activity Restrictions: No Restrictions Shower Restrictions: No Driving Restrictions: No Instruction Topics: Blood Sugar Check, Insulin Types, Diabetes Healthy Meals, Diabetes Carbs, Diabetes Eating Out Plan of Treatment: You were admitted to the hospital with extremely high blood sugars and an extremely low sodium level. Your triglycerides were found to be markedly elevated as well. You have been treated and all of your lab work has stabilized at this point. In regards to your diabetes you have been started on insulin. I am writing a prescription for Lantus 30 units daily. You also should take a short acting i nsulin 10 units 3 times daily with your meals. Your short acting insulin (Humalog) should be held if you are unable to eat. You should always take your Lantus regardless of whether you are able to eat or not. I would like for you to check your blood sugar before each meal and at bedtime and write it down for your primary care provider. Your insulin will likely need to be adjusted as you go along. You should follow a low-carb diabetic diet and I am providing some information regarding this at discharge. Also there is a tremendous amount of information on the Internet regarding appropriate diabetic diet and exercise. [place] [facility] [place] I will defer to your primary care physician but you may require a referral to an network design architect going forward. In regards to your hyponatremia (low sodium level) this was felt to be caused by excessive water intake. While it is important to stay hydrated and drink several glasses of water a day you are drinking too much on this occasion. Your sodium level has normalized and you should follow-up with your primary care physician going forward. You also were found to have extremely elevated triglycerides. This may be due to your extremely high blood sugars at the time of admission. Your triglycerides are coming down nicely and these will need to be rechecked at your primary care physician's office. We have added a new medication called fenofibrate to your regimen and I have called this into your pharmacy. Assessment: 1. Acute hyponatremia This was likely due to excessive free water intake as the patient had been drinking 2 to 3 gallons of liquid a day split between water, milk and fruit juices. He had intentionally been drinking at that level to prevent a repeat kidney stone. Also his blood sugars were markedly elevated and there likely was a component of pseudohyponatremia as well. The patient's TSH and cortisol levels were normal. His triglyceride level was greater than 3000 on presentation but has improved. His hyponatremia has been resolved. This should be followed at his primary care provider appointment 2. Uncontrolled type 2 diabetes mellitus with hyperglycemia Initially he was felt to have DKA given his acidosis at the time of admission but at this point it is felt more likely that he has had an RTA causing his acidosis as he did not improve with an insulin drip and he did not have an anion gap. His A1c is 17. He has been initiated on 30 units of Lantus and 10 units of Humalog 3 times daily AC. He has received some insulin teaching and will follow-up with his primary care physician next week. I have asked him to check his blood sugars 3 times daily and at bedtime and write this down for his primary care provider 3. Hypertriglyceridemia He will continue atorvastatin. Fenofibrate has been added to his regimen. He was on an insulin drip for 2 days and his triglyceride level that was greater than 3000 has trended down to 1100 at the time of discharge. This will need close follow-up by his primary care physician 4. Metabolic acidosis Initially felt to be DKA which has been ruled out as he did not have an anion gap. It was felt that he may have had RTA. His metabolic acidosis has resolved at this point. 5. Hypertension He will resume his home dose of losartan and metoprolol 6. Dyslipidemia Continue atorvastatin and fenofibrate has been added to his regimen 7. Elevated lipase The patient's abdominal exam is benign. No abdominal pain. It was not felt that he had pancreatitis. 8. Sciatica He will follow-up with his primary care physician as an outpatient 11. Coronary artery disease Continue aspirin 81 mg daily, losartan and metoprolol as well as atorvastatin and fenofibrate. No complaints of chest pain 12. Obstructive sleep apnea on CPAP He should continue CPAP in the home setting 13. Obesity BMI 34.6 Weight loss is recommended through dietary modification and exercise as tolerated No Smoking: If you smoke, Please STOP! Call for help.
--- NOTE | 2024-04-03 09:03 | DISCHARGE SUMMARY ---
Discharge Summary Admit Date: 03/30/24 Discharge Date: 04/03/24 Discharging Provider: Leslie Ann PA-C Primary Care Provider: [facility] Code Status: Attempt Resuscitation Condition at Discharge: Stable Discharge Disposition: 01 Home, Self Care - DIAGNOSES Discharge Diagnoses with Status of Each Condition: 1. Acute hyponatremia This was likely due to excessive free water intake as the patient had been drinking 2 to 3 gallons of liquid a day split between water, milk and fruit juices. He had intentionally been drinking at that level to prevent a repeat kidney stone. Also his blood sugars were markedly elevated and there likely was a component of pseudohyponatremia as well. The patient's TSH and cortisol levels were normal. His triglyceride level was greater than 3000 on presentation but has improved. His hyponatremia has been resolved. This should be followed at his primary care provider appointment 2. Uncontrolled type 2 diabetes mellitus with hyperglycemia Initially he was felt to have DKA given his acidosis at the time of admission but at this point it is felt more likely that he has had an RTA causing his acidosis as he did not improve with an insulin drip and he did not have an anion gap. His A1c is 17. He has been initiated on 30 units of Lantus and 10 units of Humalog 3 times daily AC. He has received some insulin teaching and will follow-up with his primary care physician next week. I have asked him to check his blood sugars 3 times daily and at bedtime and write this down for his [facility] care provider 3. Hypertriglyceridemia He will continue atorvastatin. Fenofibrate has been added to his regimen. He was on an insulin drip for 2 days and his triglyceride level that was greater than 3000 has trended down to 1100 at the time of discharge. This will need close follow-up by his primary care physician 4. Metabolic acidosis Initially felt to be DKA which has been ruled out as he did not have an anion gap. It was felt that he may have had RTA. His metabolic acidosis has resolved at this point. 5. Hypertension He will resume his home dose of losartan and metoprolol 6. Dyslipidemia Continue atorvastatin and fenofibrate has been added to his regimen 7. Elevated lipase The patient's abdominal exam is benign. No abdominal pain. It was not felt that he had pancreatitis. 8. Sciatica He will follow-up with his primary care physician as an outpatient 11. Coronary artery disease Continue aspirin 81 mg daily, losartan and metoprolol as well as atorvastatin and fenofibrate. No complaints of chest pain 12. Obstructive sleep apnea on CPAP He should continue CPAP in the home setting 13. Obesity BMI 34.6 Weight loss is recommended through dietary modification and exercise as tolerated - HPI History of Present Illness: From the admission HP: Mr. Israel Paula is a 53yo male with history of CAD with MA in 2020 leading to 3v CABG 03/2021, subsquent PCI to a bypass vessel in 2021, HTN, HLD, Type II DM and ADITHYA on CPAP who presents with not feeling well. The patient indicates that he has a history of type 2 diabetes which he has never required medications for and indicates that his last A1c was less than 6%, though this was checked several years ago. Since then he has been "diet controlled" and had no issues as far as he was aware. Last month the patient developed several kidney stones and after passing them he started to drink excess fluids, including lots of juices, milk and water. He was doing this in order to "flush my kidneys" and try to prevent further kidney stones from forming. He thinks that he typically drinks 2 to 3 gallons of fluid in a given day. Because of this he has been urinating frequently however recently he has been in a cycle of polydipsia due to increased thirst in addition to his polyuria. In the past week he has been having mental "fogginess", headache, malaise, fatigue and generalized weakness. He indicates that his appetite has still been good and he has been eating normally. He denies having any nausea, vomiting, diarrhea, melena, abdominal pain, acid reflux, chest pain, dyspnea, cough, fevers or chills. He indicates that over the past 6 to 7 months he has not been eating an appropriate diet and has been eating unhealthy foods due to significant stressors in his life. Due to his various symptoms over the past week, he started to check his glucose, with some values being greater than 400 and other values being in the 200s. He then was worried that he may have DKA, though he has never had this in the past. He obtained a urine ketone test and checked it 6 separate times, all of which showed his ketones were greater than 160. Due to this he came to the emergency department for further evaluation. In the emergency department his vitals were unremarkable and he did not appear confused though he did have dry mucous membranes. His labs revealed significant hyponatremia with a sodium of 118 along with an elevated anion gap and a serum CO2 of 15. His lipase was elevated in 300s however he did not clinically have pancreatitis. His urinalysis was concentrated with a pH of 6.0 and greater than 80 ketones. A VBG was obtained that showed a pH is 7.27 that was metabolic in nature. He was given isotonic normal saline fluids along with lactated Ringer's in the ER with improvement of his sodium to 123 however he did remain acidotic despite several pushes of IV insulin. His serum bicarb remained 15 and a VBG s howed that his pH had decreased to 7.20. He was admitted for further care and evaluation of his hyponatremia and acidosis. - HOSPITAL COURSE Hospital Course: Please see complete medical record for details. This was a prolonged hospitalization and this will be a brief summary. Overall the patient was found to be severely hyperglycemic and had severe hyponatremia at the time of admission. Triglycerides were found to be greater than 3000. Initially he was treated for possible DKA due to metabolic acidosis. However his anion gap was normal. At this point after treatment it is felt that he had RTA. In any event his metabolic acidosis has resolved with treatment. In regards to his hyponatremia it was felt that this was due to excessive free water intake if the patient had been drinking greater than 3 gallons of fluid a day to try to flush out kidney stones. His sodium level has normalized as well. Blood sugars were markedly elevated. Hemoglobin A1c was found to be greater than 17. He was initiated on 30 units of long-acting insulin and 10 units of Humalog 3 times daily AC. I have written prescriptions for these at discharge and he has been instructed on how to use an insulin pen going forward. He says he does have a blood sugar meter at home. I have discussed at length the plan of care with the patient. He is to test his blood sugars 3 times daily before meals and at bedtime and write these numbers down so that his primary care physician can monitor his blood sugar going forward. He likely will need adjustments to his insulin regimen. Diet and exercise were discussed with the patient as well. At this point the patient is doing much better. His labs have stabilized. His blood sugars are in the low 200s. It is felt that he can safely be discharged home with close outpatient follow-up. He will be discharged today in stable condition. - ALLERGIES Allergies/Adverse Reactions: Allergies Allergy/AdvReac Type Severity Reaction Status Date / Time No Known Drug Allergies Allergy Verified 03/29/24 21:33 - MEDICATIONS Home Medications: Ambulatory Orders Medication Instructions Recorded Confirmed Aspirin [Vazalore] 162 mg PO DAILY 08/31/21 03/30/24 Losartan Potassium 25 mg PO DAILY 03/29/24 03/30/24 Atorvastatin [Lipitor] 80 mg PO QPM 03/30/24 03/30/24 Metoprolol Tartrate [Lopressor] 12.5 mg PO QPM 03/30/24 03/30/24 Metoprolol Tartrate [Lopressor] 25 mg PO DAILY 03/30/24 03/30/24 Fenofibrate [Tricor] 144 mg PO DAILY #30 tab 04/03/24 Insulin Glargine [Lantus Solostar] 30 unit SUBQ DAILY #1 packet 04/03/24 Insulin Lispro [Humalog Kwikpen 10 unit SUBQ TIDWM #1 packet 04/03/24 U-100] - PHYSICAL EXAM AT DISCHARGE General Appearance: positive: No acute distress Eyes Bilateral: positive: Normal inspection ENT: positive: ENT inspection nml Neck: positive: Nml inspection Respiratory: positive: Chest non-tender, No respiratory distress, Breath sounds nml. negative: Wheezes, Rales, Rhonchi Cardiovascular: positive: Regular rate & rhythm, No murmur, No gallop. negative: Friction rub Abdomen: positive: Non-tender, No organomegaly, Nml bowel sounds Skin: positive: Color nml, No rash, Warm, Dry Extremities: positive: Non-tender, Full ROM, Nml appearance Neurologic/Psychiatric: positive: Oriented x3, CN's nml (2-12) - LABS Result Diagrams: 04/03/24 05:00 04/03/24 05:00 - SEPSIS Current Stage of Sepsis: Ruled out - FOLLOW UP Follow Up: [place] - TIME SPENT Time Spent in Discharge (Minutes): 45
[2024-04-03] MEDS: polyethylene glycoL 3350 17 GM PACKET PO SCH (09:24)
== END 2024-04-03 12:30 | disposition home or self-care (01) | DRG 638 ==
LOC: ED 21:22 → ICU 03-30 14:51 → ED 03-30 15:26 → MS2 04-02 15:39
PROVIDERS: ADMIT Hospitalist; ATTEND Physician Assistant
DX: E11.65 Type 2 diabetes mellitus with hyperglycemia (principal); E87.1 Hypo-osmolality and hyponatremia; E87.20 Acidosis, unspecified; I25.810 Atherosclerosis of coronary artery bypass graft(s) without angina pectoris; N25.89 Other disorders resulting from impaired renal tubular function; I10 Essential (primary) hypertension; I25.10 Atherosclerotic heart disease of native coronary artery without angina pectoris; G47.33 Obstructive sleep apnea (adult) (pediatric); Z95.1 Presence of aortocoronary bypass graft; Z87.442 Personal history of urinary calculi; R74.8 Abnormal levels of other serum enzymes; E78.5 Hyperlipidemia, unspecified; E78.1 Pure hyperglyceridemia; I25.2 Old myocardial infarction; T46.6X6A Underdosing of antihyperlipidemic and antiarteriosclerotic drugs, initial encounter; Z91.128 Patient's intentional underdosing of medication regimen for other reason; Z95.5 Presence of coronary angioplasty implant and graft; M54.41 Lumbago with sciatica, right side
CPT/HCPCS: 36415; 72131; 80048; 80053; 81001; 82009; 82330; 82465; 82533; 82803; 82947; 83036; 83690; 83718; 83721; 83735; 84100; 84132; 84443; 84478; 85025; 87150; 93005; A9270; J1650; J1815; J7120; 81003; 83605; 87086; 96360; 99284